=== PATIENT | male | born 1955 | race Caucasian/White ===

== ENCOUNTER 2018-03-23 00:23 | Outpatient (CLI) | payer BC, SELFPAY ==
--- NOTE | 2018-03-23 14:11 | DI.RAD_ITS ---
SYMPTOMS/DIAGNOSIS: LEFT KNEE JOINT PAIN > 3 MONTHS, M25.562 LEFT KNEE: Three views. No bone or joint abnormality is identified. The soft tissues are unremarkable. IMPRESSION: Negative examination.
== END 2018-03-23 00:43 ==
PROVIDERS: PCP Family Medicine; Visit Provider Family Medicine
DX: M25.562 Pain in left knee (principal)
CPT/HCPCS: 73562

== ENCOUNTER 2018-11-09 07:53 | Outpatient (REF) | payer BC, SELFPAY ==
[2018-11-09 13:29] LABS: HCT 42.8 % (40.0-50.0); HGB 15.4 g/dL (13.5-17.5); Mean Corpuscular Hemoglobin 31.9 pg (27.0-33.0); Mean Corpuscular Volume 88.6 fL (80-95); Mean Platelet Volume 10.1 fL (8.0-11.0); Platelet Count 150 x1000/uL (130-400); RBC 4.83 m/cumm (4.50-6.00); RBC Distribution Width 13.5 % (11.8-14.1); White Blood Cell Count 6.39 k/cumm (4.4-10.8)
[2018-11-09 13:34] LABS: Anion Gap 8.5 mmol/L (3-11); BUN 28 mg/dL (7-18); CO2 29.5 mmol/L (21.0-32.0); CREATININE 1.15 mg/dL (0.70-1.30); Calcium 8.9 mg/dL (8.5-10.1); Chloride 103 mmol/L (98-107); Glucose 109 mg/dL (70-100); Sodium 141 mmol/L (136-145)
== END 2018-11-09 08:13 ==
LOC: NCHCN 07:53
PROVIDERS: PCP Family Medicine; Visit Provider Family Medicine
DX: R07.89 Other chest pain (principal); R06.09 Other forms of dyspnea
CPT/HCPCS: 80048; 85027

== ENCOUNTER 2018-11-14 00:04 | Outpatient (CLI) | payer BC, SELFPAY ==
--- NOTE | 2018-11-14 09:45 | MERGEMPI_ITS ---
*[facility]* *[facility]* [address] [place] [address] Myocardial Perfusion Imaging - SPECT Regadenoson Date of study: 11/14/2018 *PATIENT PRESENTATION* Height: 170.2cm (67in) Blood Pressure: Weight: 77.3kg (170lb) BSA: 1.93m^2 Referring physician: Dhaval Kimball MD Ordering physician: Radha Ceballos Impressions: - Abnormal study after pharmacologic stress. - Abnormal contraction consistent with cardiomyopathy. - Rec cardiology follow up. Summary: 1. Myocardial perfusion imaging: There is a small - moderate sized, moderately intense, partially reversible defect involving the apical wall(s). This suggests small - moderate ischemia in the distribution of the left anterior descending coronary artery. Overall ischemia: small to moderate. 2. The calculated left ventricular ejection fraction after stress: 43%. Diffuse left ventricular regional motion abnormalities. Indication: R07.89. History: Patient's presenting symptoms: asymptomatic. REASON FOR VISIT: PATIENT HAS BEEN EXPERIENCING 6/10 STERNAL ACHEY, PRESSURE CHEST PAIN AND DYSPNEA ON EXERTION WHEN WALKING UPHILL OR WALKING FAST OVER THE PAST FEW WEEKS.. CHEST PRESSURE AND DYSPNEA LAST A MINUTE AND RESOLVE WITH REST. WHEN HE BEGINS ACTIVITY AGAIN THE SYMPTOMS RETURN. PAST MEDICAL HISTORY: CORONARY ARTERY DISEASE, DM II, ERECTILE DYSFUNCTION, MYOCARDIAL INFARCTION, HYPERTENSION, HYPERLIPIDEMIA. FAMILY HISTORY: FATHER (DIABETES). SMOKING STATUS: REMOTE SMOKING HISTORY. EXERCISE ROUTINE: WALKS 4X/WEEK. Risk factors: Hypertension. Diabetes mellitus. Dyslipidemia. Cholesterol: 190mg/dl. HDL: 30mg/dl. LDL: 43mg/dl. Triglycerides: 481mg/dl. ALLERGIES: NO KNOWN ALLERGIES. MEDICATIONS: LISINOPRIL 2.5MG, DAILY. METOPROLOL SUCCINATE ER 50MG, DAILY. ATORVASTATIN CALCIUM 80MG, HS. ASPIRIN 81MG, DAILY. NITROGLYCERIN 0.4MG, SL PRN. SILDENAFIL CITRATE 100MG, PRN. Imaging Technique: Protocol: Regadenoson. Acquisition: Gated SPECT; 1 day - rest/stress. The patient was imaged in the supine position. Attenuation correction used. Isotope administration: - Rest. Tc[99m]-sestamibi. Dose: 9mCi. Injection time: 09:45 AM. Injection to stress time: 00:45. - Stress. Tc[99m]-sestamibi. Dose: 30mCi. Injection time: 12:15 PM. 1-2 min before end of exercise Baseline ECG: SINUS BRADYCARDIA. ST ELEVATION OF LEAD V2. HEART RATE 47 BPM. Stress protocol: +--------+--+ + + + !Stage !HR!BP (mmHg) !Symptoms !Comments ! +--------+--+ + + + !Baseline!47!110/72 ! ! ! ! ! !(85) ! ! ! +--------+--+ + + + !1 min !85!130/78 ! !Inject Regadenoson.! ! ! !(95) ! ! ! +--------+--+ + + + !3 min !70!112/70 !3 out of 10 chest ! ! ! ! !(84) !discomfort ! ! +--------+--+ + + + !6 min !66!120/64 !3 out of 10 chest ! ! ! ! !(83) !discomfort ! ! +--------+--+ + + + !8 min !--! !4 out of 10 chest ! ! ! ! ! !discomfort ! ! +--------+--+ + + + !9 min !68!116/72 ! ! ! ! ! !(87) ! ! ! +--------+--+ + + + !1 min !--! ! !Inject Regadenoson.! +--------+--+ + + + * Stress results: The rate-pressure product for the peak heart rate and blood pressure was 88633wg Hg/min. Stress ECG: MPI STRESS TEST ENDED IN 13MIN 36SEC WHEN EFFECTS OF REGADENOSON INJECTION HAD SUBSIDED. APPROPRIATE HEART RATE AND BLOOD PRESSURE RESPONSE TO EXERCISE. PATIENT REPORTED ONSET OF 3/10 STERNAL CHEST PRESSURE AT MINUTE THREE POST REGADENOSON INJECTION, INCREASING TO 4/10 CHEST PRESSURE AT MINUTE EIGHT. AMINOPHYLLINE WAS GIVEN 10MIN 40SEC POST REGADEONSON INJECTION TO RELIEVE SYMPTOMS. NO ECTOPY NOTED. INVERTED T WAVES IN LEADS V3, V4, AND V5 NOTED WITH REGADENOSON INJECTION, RETURING TO BASELINE BY MINUTE THREE. Myocardial perfusion: Imaging information: gated. There is a small - moderate sized, moderately intense, partially reversible defect involving the apical wall(s). This suggests small - moderate ischemia in the distribution of the left anterior descending coronary artery. Overall ischemia: small to moderate. Ventricular Function (Wall Motion): The calculated left ventricular ejection fraction after stress: 43%. Diffuse left ventricular regional motion abnormalities. Study data: Dhaval Kimball MD supervised and was readily available during the procedure. This study was interpreted by [facility]. Study status: Routine. Consent: The risks, benefits, and alternatives to the procedure were explained to the patient and informed consent was obtained. Procedure: Initial setup. A baseline ECG was recorded. Surface ECG leads and manual cuff blood pressure measurements were monitored. Heart sounds: Normal. Lung sounds: Normal. Regadenoson stress test. Stress testing was performed, with regadenoson by intravenous bolus, for a total dose of 0.4mgover 10.00sec, followed by a 5ml saline flush. The infusion was terminated due to per protocol. The patient was unable to exercise due to METOPROLOL USE TODAY. Study completion: All catheters inserted during the procedure were removed. The patient tolerated the procedure well and was discharged from the lab. Discharge: The patient left the laboratory in stable condition. Birthdate: Patient birthdate: 1955. Sex: Gender: male. Study date: Study date: 11/14/2018. Study time: 00:01 AM. Electronically signed by Dhaval Kimball MD 11/14/2018 16:55
[2018-11-14] MEDS: Regadenoson 0.4 MG/5 ML SYR IVP (12:11)
== END 2018-11-14 00:24 ==
PROVIDERS: PCP Family Medicine; Visit Provider Family Medicine
DX: R07.89 Other chest pain (principal); R06.09 Other forms of dyspnea; I42.9 Cardiomyopathy, unspecified; R94.30 Abnormal result of cardiovascular function study, unspecified; I25.10 Atherosclerotic heart disease of native coronary artery without angina pectoris; I25.2 Old myocardial infarction; E11.9 Type 2 diabetes mellitus without complications; I10 Essential (primary) hypertension; E78.5 Hyperlipidemia, unspecified
CPT/HCPCS: 78452; 93017; J0280; J2785

== ENCOUNTER 2018-12-07 09:19 | Outpatient (CLI) | payer BC, SELFPAY | END 2018-12-07 09:39 | PROVIDERS: PCP Family Medicine; Visit Provider Internal Medicine Cardiovascular Disease | DX: I25.10 Atherosclerotic heart disease of native coronary artery without angina pectoris (principal); Z95.818 Presence of other cardiac implants and grafts; I10 Essential (primary) hypertension; E78.5 Hyperlipidemia, unspecified; E11.9 Type 2 diabetes mellitus without complications | CPT/HCPCS: 93005; 93010 ==

== ENCOUNTER 2018-12-28 11:25 | Outpatient (RCR) | payer BC, SELFPAY | END 2018-12-30 23:59 | disposition home or self-care (01) | LOC: CR 11:25 | PROVIDERS: PCP Family Medicine; Visit Provider Family Medicine | DX: Z51.89 Encounter for other specified aftercare (principal); Z95.5 Presence of coronary angioplasty implant and graft | CPT/HCPCS: S9472 ==

== ENCOUNTER 2019-01-07 00:59 | Outpatient (CLI) | payer BC, SELFPAY ==
--- NOTE | 2019-01-07 13:55 | MERGE_ITS ---
*[facility]* *[facility]* [address] [place] [address] Date of study: 01/07/2019 Transthoracic Echocardiography M-mode, complete 2D, complete spectral Doppler, and color Doppler *STUDY CONCLUSIONS* Summary: 1. Left ventricle: The cavity size was normal. Systolic function was normal. The estimated ejection fraction was 60-65%. Diastolic parameters were normal for age. There was no evidence of elevated ventricular filling pressure by Doppler parameters. 2. Aortic valve: There was mild to moderate regurgitation. 3. Mitral valve: There was mild regurgitation. 4. Right ventricle: The cavity size was normal. Wall thickness was normal. Systolic function was normal. 5. Atrial septum: No defect or patent foramen ovale was identified. 6. Pulmonary arteries: Pulmonary systolic pressure was in the range of 20mm Hg to 30mm Hg. 7. Inferior vena cava: The vessel was patent and normal in size. The respirophasic diameter changes were in the normal range (greater than or equal to 50%), consistent with normal central venous pressure. *PATIENT PRESENTATION* Height: 170.2cm (67in ) S/D Pressure: 108 / 64 Weight: 76.7kg (168.6lb ) BSA: 1.92m^2 Test start time: 02:05 PM. Test stop time: 01:05 PM. PERFORMING Unknown ORDERING Diana Meza REFERRING Diana Meza PERFORMING [facility] SHIATSU THERAPIST RT Madison Pearson)(JOSE RAMON), [facility] CONSULTING Tayo Lpoez *PROCEDURE DATA* Procedure information: The patient was identified by two identifiers. This study was interpreted by [facility]. Pertinent images and digital data are archived for permanent storage and are available for subsequent review. No prior study was available for comparison. Study status: Routine. Transthoracic echocardiography. M-mode, complete 2D, complete spectral Doppler, and color Doppler. A Transthoracic Echocardiogram was performed. Scanning was performed from the parasternal, apical, subcostal, and suprasternal notch acoustic windows. Images were obtained using an cardiac ultrasound machine. Image quality was good. Study completion: The patient tolerated the procedure well. History: PMH: CAD i25.10 *CARDIAC ANATOMY* Left ventricle: The cavity size was normal. Systolic function was normal. The estimated ejection fraction was 60-65%. The tissue Doppler parameters were abnormal. Diastolic parameters were normal for age. There was no evidence of elevated ventricular filling pressure by Doppler parameters. Aortic valve: Trileaflet. Doppler: Transvalvular velocity was minimally increased. There was mild to moderate regurgitation. VTI ratio of LVOT to aortic valve: 0.57. Valve area (VTI): 1.8cm^2. Indexed valve area (VTI): 1cm^2/m^2. Peak velocity ratio of LVOT to aortic valve: 0.54. Valve area (Vmax): 1.8cm^2. Indexed valve area (Vmax): 0.9cm^2/m^2. Mean velocity ratio of LVOT to aortic valve: 0.55. Valve area (Vmean): 1.8cm^2. Indexed valve area (Vmean): 0.9cm^2/m^2. Mean gradient (S): 9.6mm Hg. Peak gradient (S): 17.4mm Hg. Aorta: Aortic root: The aortic root was normal in size. Ascending aorta: The ascending aorta was mildly dilated. Mitral valve: Doppler: There was no evidence for stenosis. There was mild regurgitation. Valve area by pressure half-time: 4.8cm^2. Indexed valve area by pressure half-time: 2.5cm^2/m^2. Peak gradient (D): 3.4mm Hg. Left atrium: The atrium was normal in size. Atrial septum: No defect or patent foramen ovale was identified. Right ventricle: The cavity size was normal. Wall thickness was normal. Systolic function was normal. Pulmonic valve: Doppler: There was no evidence for stenosis. There was mild regurgitation. Peak gradient (S): 3.4mm Hg. Tricuspid valve: Doppler: There was mild regurgitation. Pulmonary artery: Poorly visualized. Pulmonary systolic pressure was in the range of 20mm Hg to 30mm Hg. Right atrium: The atrium was normal in size. Pericardium: There was no pericardial effusion. Systemic veins: Inferior vena cava: Well visualized. The vessel was patent and normal in size. The respirophasic diameter changes were in the normal range (greater than or equal to 50%), consistent with normal central venous pressure. Baseline ECG: Normal sinus rhythm. Measurements Left ventricle Value Reference LV ID, ED, PLAX 4.6 cm 3.5 - 6.0 LV ID, ES, PLAX 3.3 cm 2.1 - 4.0 LV PW thickness, ED, PLAX 0.8 cm LV end-diastolic volume, 1-p A2C 108 ml LV ejection fraction, 1-p A2C 61 % LV end-diastolic volume, 1-p A4C 104 ml LV ejection fraction, 1-p A4C 67 % LV e', lateral 0.111 m/sec LV E/e', lateral 8 LV e', medial 0.067 m/sec LV E/e', medial 14 LV e', average 0.089 m/sec LV E/e', average 10 Ventricular septum Value Reference IVS thickness, ED, PLAX 0.9 cm LVOT Value Reference LVOT ID, A-P 2.0 cm LVOT area 3.2 cm^2 LVOT peak velocity, S 1.12 m/sec LVOT mean velocity, S 0.81 m/sec LVOT VTI, S 28.0 cm LVOT peak gradient, S 5.1 mm Hg LVOT mean gradient, S 2.9 mm Hg Stroke volume (SV), LVOT DP 91 ml Stroke index (SV/bsa), LVOT DP 47 ml/m^2 Aortic valve Value Reference Aortic valve peak velocity, S 2.1 m/sec Aortic valve mean velocity, S 1.5 m/sec Aortic valve VTI, S 49.0 cm Aortic mean gradient, S 9.6 mm Hg Aortic peak gradient, S 17.4 mm Hg VTI ratio, LVOT/AV 0.57 Aortic valve area, VTI 1.8 cm^2 Velocity ratio, peak, LVOT/AV 0.54 Aortic valve area, peak velocity 1.8 cm^2 Velocity ratio, mean, LVOT/AV 0.55 Aortic valve area, mean velocity 1.8 cm^2 Aortic valve area/bsa, mean velocity 0.9 cm^2/m^2 Aorta Value Reference Aortic root ID, ED 3.6 cm Ascending aorta ID, A-P, S 3.5 cm RVOT Value Reference RVOT VTI, S 12.9 cm Left atrium Value Reference LA ID, A-P, ES 3.5 cm LA ID/bsa, A-P 1.8 cm/m^2 <=2.2 LA volume/bsa, ES, 1-p A4C 38 ml/m^2 LA volume, ES, 2-p 61 ml LA volume/bsa, ES, 2-p 32 ml/m^2 LA/aortic root ratio 0.97 Mitral valve Value Reference Mitral E-wave peak velocity 0.92 m/sec Mitral A-wave peak velocity 0.84 m/sec Mitral deceleration time 159 ms 150 - 230 Mitral pressure half-time 46 ms Mitral peak gradient, D 3.4 mm Hg Mitral E/A ratio, peak 1.09 Mitral valve area, PHT, DP 4.8 cm^2 Pulmonary veins Value Reference Pulmonary vein peak velocity, S 0.57 m/sec Pulmonary vein peak velocity, D 0.45 m/sec Pulmonary vein velocity ratio, peak, 1.27 S/D Pulmonary vein A-wave reversal peak 0.36 m/sec velocity Tricuspid valve Value Reference Tricuspid regurg peak velocity 2.4 m/sec Tricuspid peak RV-RA gradient 23.3 mm Hg Right atrium Value Reference RA area, ES, A4C 14.1 cm^2 8.3 - 19.5 Pulmonic valve Value Reference Pulmonic peak gradient, S 3.4 mm Hg Legend: (L) and (H) edson values outside specified reference range. I have personally reviewed the images and have reviewed and edited the reported findings. Electronically signed by Dhaval Kimball MD 01/07/2019 17:46
== END 2019-01-07 01:19 ==
PROVIDERS: PCP Family Medicine; Visit Provider Internal Medicine Cardiovascular Disease
DX: I25.10 Atherosclerotic heart disease of native coronary artery without angina pectoris (principal); I25.2 Old myocardial infarction; I42.9 Cardiomyopathy, unspecified; I10 Essential (primary) hypertension
CPT/HCPCS: 93306

== ENCOUNTER 2019-01-30 13:41 | Outpatient (RCR) | payer BC, SELFPAY | END 2019-01-30 23:59 | disposition home or self-care (01) | LOC: CR 13:41 | PROVIDERS: PCP Family Medicine; Visit Provider Family Medicine | DX: Z95.5 Presence of coronary angioplasty implant and graft (principal); Z51.89 Encounter for other specified aftercare | CPT/HCPCS: S9472 ==

== ENCOUNTER 2019-03-01 10:00 | Outpatient (RCR) | payer BC, SELFPAY | END 2019-03-02 23:59 | disposition home or self-care (01) | LOC: CR 10:00 | PROVIDERS: PCP Family Medicine; Visit Provider Family Medicine | DX: Z95.5 Presence of coronary angioplasty implant and graft (principal); Z51.89 Encounter for other specified aftercare | CPT/HCPCS: S9472 ==

== ENCOUNTER 2019-03-13 09:00 | Outpatient (RCR) | payer BC, SELFPAY | END 2019-04-01 23:59 | disposition home or self-care (01) | LOC: CR 09:00 | PROVIDERS: PCP Family Medicine; Visit Provider Family Medicine | DX: Z95.5 Presence of coronary angioplasty implant and graft (principal); Z51.89 Encounter for other specified aftercare | CPT/HCPCS: S9472 ==

== ENCOUNTER 2020-02-27 16:42 | Outpatient (REF) | payer BC, SELFPAY ==
[2020-02-27 18:49] LABS: Anion Gap 3.9 mmol/L (3-11); BUN 24 mg/dL (7-18); CO2 30.1 mmol/L (21.0-32.0); CREATININE 1.18 mg/dL (0.70-1.30); Calcium 8.6 mg/dL (8.5-10.1); Calculated LDL 57 mg/dL (<100); Chloride 104 mmol/L (98-107); Cholesterol 115 mg/dL (<200); Glucose 170 mg/dL (74-106); HDL Cholesterol 46 mg/dL (40-60); Potassium 4.1 mmol/L (3.5-5.1); Sodium 138 mmol/L (136-145); Triglyceride 63 mg/dL (<150)
== END 2020-02-27 17:02 ==
LOC: NCHCN 16:42
PROVIDERS: PCP Family Medicine; Visit Provider Family Medicine
DX: Z00.00 Encounter for general adult medical examination without abnormal findings (principal); I25.10 Atherosclerotic heart disease of native coronary artery without angina pectoris; Z86.39 Personal history of other endocrine, nutritional and metabolic disease
CPT/HCPCS: 80048; 80061

== ENCOUNTER 2020-12-13 08:23 | Emergency (ER) | payer BC, SELFPAY ==
[2020-12-13] VITALS (48 sets, daily range): BP systolic 104–139; BP diastolic 41–77; PULSE 45–65; RESP 8–23; TEMP 36.3; O2SAT 97–100
--- NOTE | 2020-12-13 08:15 | RT.EKG_ITS ---
APPROVED REPORT Exam: Resting ECG Reason for Exam: chest pain Patient Location: E HR:59 bpm ECG Measurements Heart Rate 59 AXIS VT 164 P 2 QRSd 106 QRS 20 QT 465 T 38 QTc 461 Conclusion Sinus bradycardia...rate 60, st segments flat, with slight st elevation V3-6
--- NOTE | 2020-12-13 08:45 | DI.CT_ITS ---
Exam(s) CT HEAD WO EXAM: CT HEAD WO CLINICAL HISTORY: dizziness, chest pressure. TECHNIQUE: Imaging Protocol: Axial computed tomography images with coronal and sagittal reformatted images were created and reviewed COMPARISON: No exams were available for comparison FINDINGS: Ventricles and Extra axial spaces: Normal in size and morphology for the patient's age. Hemorrhage: None. Cerebral parenchyma: No acute territorial infarct. Midline shift: None. Brainstem/Cerebellum: Normal. Calvarium: Normal. Visualized Paranasal sinuses/Mastoids: There is mucosal thickening seen in the maxillary sinuses bila terally. There is thickening of the waggoner of the maxillary sinus suggesting chronic sinus disease. There is also opacification of several ethmoid air cells bilaterally. There does appear to be fluid in the maxillary sinus which may represent a superimposed acute sinusitis. The remaining visualized paranasal sinuses and mastoid air cells are clear. Soft Tissues: Unremarkable. IMPRESSION: 1. No acute intracranial process. 2. Sinus disease. RADIATION DOSE DELIVERED: 724.38mGy.cm Total DLP DATA REPOSITORY: All CT scans at this facility are submitted to the National Radiology Data Registry (NRDR) Dose Index Registry (DIR) with the [employer] (ACR). RADIATION OPTIMIZATION: All CT scans at this facility use at least one of these dose optimization te chniques: automated exposure control; mA and/or kV adjustment per patient size (includes targeted exa ms where dose is matched to clinical indication); or iterative reconstruction.
--- NOTE | 2020-12-13 08:45 | DI.RAD_ITS ---
Exam(s) XR CHEST 2V PA LATERAL EXAM: XR CHEST 2V PA LATERAL CLINICAL HISTORY: Chest pain TECHNIQUE: 2D digital imaging was performed. COMPARISON: No exams were available for comparison FINDINGS: MEDIASTINUM: Normal. HEART: Normal. PULMONARY VASCULATURE: Normal. LUNGS: Clear. PLEURAL SPACE: No pleural effusion or pneumothorax. BONE:Within normal limits for the patient's age. OTHER FINDINGS:Normal. IMPRESSION: No acute pulmonary findings. DATA REPOSITORY: RADIATION DOSE DELIVERED:
--- NOTE | 2020-12-13 08:50 | ED.GENADUL_ITS ---
Discharge Plan Disposition Patient Disposition: HOME Condition: Improving Discharge Details Clinical Impression: Acute maxillary sinusitis Primary Care Provider: Tayo Lopez ED Provider: Santiago Farmer Home Meds and New Rx's Prescriptions: New cefpodoxime 200 mg tablet 200 mg PO BID Qty: 14 RF: 0 Continued lisinopril 2.5 mg tablet 2.5 mg PO DAILY RF: 0 metoprolol succinate 50 mg tablet extended release 24 hr 50 mg PO DAILY RF: 0 rosuvastatin 40 mg tablet 40 mg PO DAILY RF: 0 aspirin 81 mg tablet,delayed release (DR/EC) 81 mg PO DAILY RF: 0 sildenafil [Viagra] 100 mg tablet 100 mg PO DAILY PRNRF: 0 nitroglycerin 0.4 mg Tablet, Sublingual 0.4 mg SUBLINGUAL Q5M PRNRF: 0 Discharge Instructions Instructions: Sinusitis (ED) Additional Instructions: Home to rest today. Small, frequent sips of fluids to maintain good hydration. May use Claritin during the day or Benadryl at night to assist with decongestion of the sinuses. Please take Cefpodoxime as prescribed. Return to the ER for any acute concerns as we discussed. Medical Decision Making 65-year-old male presents from home. States he had the onset of chest pressure, a feeling of flushing in his head, and diaphoresis at approximate 11 PM last night. He was sitting in bed at the time. He took Viagra at midnight, states this did not help, then was able to sleep. He denies any exertion or sexual relations last night. This morning he awoke and had chest pressure. His child felt improved, but given history of coronary artery disease he now seeks evaluation for ongoing mild chest pressure. Patient arrives ER afebrile, blood pressure 139/63. Heart rate 68-65 approximately. He is well-appearing on exam. Initial EKG shows a slight slurred upslope of the ST segments in V3 through 6, otherwise nonspecific changes. Differential diagnosis includes ACS, GERD, electrolyte abnormality or dehydration. Patient placed on a youth nutritional monitor, laboratories obtained, referred for chest x-ray, and given his slight vertiginous symptoms a CT scan of the head obtained as well. Diagnostic studies. Laboratories note an unremarkable CBC, BUN 24, creatinine 1.1, reassuring electrolytes. Troponin negative, magnesium 1.7, D-dimer elevated at 672. CT scan of the head reveals maxillary sinusitis. Chest x-ray unremarkable. Given the elevated D-dimer CT scan of the chest obtained: No evidence of PE. Patient observed on a youth nutritional monitor and repeat troponin obtained and negative. Unremarkable repeat EKG. Discussed with patient consideration of admission which he will declined at this time. I spoke to he and his at the bedside together. We will treat his maxillary sinusitis with a course of oral antibiotic. Stable and will return to the ER for any acute concerns.. HPI General Mode of arrival: ambulatory . Date/Time Provider Initiated Documentation: 12/13/20 08:26 . Limitations to Documentation: no limitations . Information obtained by: patient and family . History of Present Illness 65 year old M presents to the emergency department with the chief complaint of Chest pressure, began 11 PM last night, described as mild and moderate, Quality is described as dull, and is localized to the chest. Patient started experiencing this hour(s) and it has been intermittent. No relieving factors improve symptom(s), No exacerbating factors reported . Patient notes other (Head pressure, diaphoresis). Patient did receive the following danette tments prior to arrival, other (Viagra midnight last night) Related Data Home Medications Medication Instructions Recorded Confirmed aspirin 81 mg tablet,delayed 81 mg PO DAILY 12/07/18 12/13/20 release lisinopril 2.5 mg tablet 2.5 mg PO DAILY 12/07/18 12/13/20 metoprolol succinate 50 mg 50 mg PO DAILY 12/07/18 12/13/20 tablet,extended release 24 hr rosuvastatin 40 mg tablet 40 mg PO DAILY 12/07/18 12/13/20 sildenafil 100 mg tablet 100 mg PO DAILY PRN 12/07/18 12/13/20 cefpodoxime 200 mg PO BID #14 tab 12/13/20 nitroglycerin 0.4 mg SUBLINGUAL Q5M PRN 12/13/20 12/13/20 Previous Rx's Medication Instructions Recorded cefpodoxime 200 mg PO BID #14 tab 12/13/20 Allergies Allergy/AdvReac Type Severity Reaction Status Date / Time No Known Allergies Allergy Unverified 12/02/19 10:02 General Stated Complaint: Chest Pain MARCELA: 2 Review of Systems Narrative: No recent illness. Denies lightheadedness. Slight sensation of motion sickness that is not worsened with movement of the head. Slight chest pressure. Diaphoretic last night. 8 systems reviewed and otherwise negative. [facility] Medical History AMI (acute myocardial infarction) Surgical History (Updated 12/13/20 @ 08:35 by Genevieve Gilbert) H/O cardiac catheterization H/O heart artery stent H/O hernia repair Social History Smoking/Tobacco Use Status: Never Smoking risk assessment performed?: Yes Alcohol Intake: current Alcohol Intake frequency: holidays/special occasions only Drug use: Occasionally Substance use type: marijuana Do you feel safe in your relationship?: Yes Exam Narrative Exam Narrative: GEN: awake, alert, oriented 3. Pleasant, well groomed, interactive. HEAD: Normocephalic, atraumatic ENT: Mucous membranes moist, oropharynx unremarkable, External ear exam unremarkable EYES: PERRL, EOMI NECK: Full ROM, no GENOVEVA, no menigismus CHEST/RESP: Nontender, clear to auscultation bilateral, no wheeze/rhonchi/rales CARDIOVASCULAR: Distant, bradycardic at approximately 60-65, RR, no murmur, rub jonathan. 2+ Rad pulse bilateral ABDOMEN: Soft, nontender, no mass. +Bowel sounds EXT: Full ROM, no edema, no rash Neuro: Grossly normal neurologic exam, conversant, interactive. Cranial nerves II through XII intact Psych: Speech fluent, thoughts congruent, affect normal Course Vital Signs Vital signs: Vital Signs Temperature 36.3 C L 12/13/20 08:26 Pulse 58 L 12/13/20 08:26 Respiratory Rate 23 12/13/20 08:26 Blood Pressure 139/63 12/13/20 08:26 Pulse Oximetry 99 12/13/20 08:26 Temperature 36.3 C L 12/13/20 08:26 Temperature Source Skin 12/13/20 08:26 Pulse 58 L 12/13/20 08:26 Respiratory Rate 23 12/13/20 08:37 Respiratory Effort Non-Labored 12/13/20 08:37 Respiratory Depth Normal 12/13/20 08:37 Respiratory Pattern Normal 12/13/20 08:37 Blood Pressure 139/63 12/13/20 08:26 Blood Pressure Position Sitting 12/13/20 08:26 Pulse Oximetry 99 12/13/20 08:26 Oxygen Delivery Method Room Air 12/13/20 08:26 Oxygen Flow Rate 0 12/13/20 08:26 Pain Level 4 12/13/20 08:37
[2020-12-13] MEDS: Aspirin 325 MG TAB PO (08:57)
[2020-12-13] MEDS: Normal Saline 1,000 ML 125 ML IV (08:57)
[2020-12-13 09:00] LABS: Abs Immature Grans 0.01 10^3/uL (0.0-0.06); Absolute Basophil Count 0.04 10^3/uL (0.0-0.2); Absolute Eosinophil Count 0.27 10^3/uL (0.0-0.7); Absolute Lymphocyte Count 2.73 10^3/uL (1.2-3.4); Absolute Monocyte Count 0.52 10^3/uL (0.1-0.8); Absolute Neutrophil Count 3.26 10^3/uL (1.2-6.7); Basophils % 0.6; HCT 38.6 % (40.0-50.0); HGB 13.6 g/dL (13.5-17.5); Immature Grans % 0.1; MCH 31.1 pg (27.0-33.0); MCHC 35.2 % (32.0-36.0); MCV 88.1 fL (80-95); MPV 9.3 fL (8.0-11.0); Monocytes % 7.6; Neutrophils % 47.7; Nucleated RBC 0 %; Platelet Count 127 10^3/uL (130-400); RBC 4.38 10^6/uL (4.36-5.78); RDW 13.2 % (11.8-14.1); RDW-SD 42.5 fL; WBC 6.83 10^3/uL (4.4-10.8)
[2020-12-13 09:15] LABS: PTT Activated 22.7 sec (21.0-27.5); Prothrombin Time 10.5 sec (9.3-11.0)
[2020-12-13 09:19] LABS: ALT 37 U/L (16-63); AST 28 U/L (15-37); Alkaline Phosphatase 88 U/L (46-116); Anion Gap 7.9 mmol/L (3-11); BUN 24 mg/dL (7-18); Bilirubin, Total 0.7 mg/dL (0.2-1.0); CO2 29.1 mmol/L (21.0-32.0); CREATININE 1.1 mg/dL (0.70-1.30); Chloride 103 mmol/L (98-107); Glucose 174 mg/dL (74-106); Magnesium 1.7 mg/dL (1.8-2.4); NT-proBNP 56 pg/mL (<300); Potassium 4.4 mmol/L (3.5-5.1); Sodium 140 mmol/L (136-145); Total Protein 7.2 g/dL (6.4-8.2); Troponin I < 0.05 ng/mL (<0.06)
[2020-12-13] MEDS: Ondansetron 4 MG/2 ML VIAL IVP (09:25)
[2020-12-13] MEDS: MAGNESIUM SULFATE 1 GM/100 ML BAG IVPB (09:28)
--- NOTE | 2020-12-13 09:30 | DI.CT_ITS ---
Exam(s) CT CHEST PE CTA EXAM: CT CHEST PE CTA CLINICAL HISTORY: chest pressure, elev DDimer. Hx CAD. TECHNIQUE: Imaging Protocol: Axial CT angiography was performed with multi-slice acquisition and mu lti-planar and/or 3D reconstructions. CONTRAST MATERIAL: Intravenous: Omnipaque 350 Contrast volume:100 mL COMPARISON: No exams were available for comparison FINDINGS: Tracheobronchial tree: Patent where visualized. Pulmonary parenchyma: No consolidation or dominant measurable mass. No architectural distortion. Pulmonary Arteries: No evidence of filling defect to suggest pulmonary emboli. Mediastinum and Brooke: No dominant adenopathy or fluid collection. There is a small hiatal hernia. Visualized thyroid gland: Unremarkable. Pleura: No effusion or pneumothorax. Heart: The heart is not dilated. Moderate coronary artery calcification. No pericardial effusion. Aorta: Thoracic aorta non-dilated. Atherosclerosis. No evidence of dissection. Upper abdomen: Unremarkable. Soft tissues: Unremarkable. Bones: Within normal limits. IMPRESSION: No evidence of pulmonary embolism, thoracic aortic dissection or aneurysm. RADIATION DOSE DELIVERED: 368.44mGy.cm Total DLP DATA REPOSITORY: All CT scans at this facility are submitted to the National Radiology Data Registry (NRDR) Dose Index Registry (DIR) with the [employer] (ACR). RADIATION OPTIMIZATION: All CT scans at this facility use at least one of these dose optimization te chniques: automated exposure control; mA and/or kV adjustment per patient size (includes targeted exa ms where dose is matched to clinical indication); or iterative reconstruction.
[2020-12-13 09:32] LABS: D-Dimer 672 ng/mlFEU (<500)
--- NOTE | 2020-12-13 09:39 | DI.VRAD_ITS ---
PROCEDURE INFORMATION: Exam: CT Head Without Contrast Exam date and time: 12/13/2020 8:48 AM Age: 65 years old Clinical indication: Other: Dizziness, chest pressure TECHNIQUE: Imaging protocol: Computed tomography of the head without contrast. COMPARISON: No relevant prior studies available. FINDINGS: Brain: There is no acute intracranial hemorrhage. No extra-axial fluid collection. No evidence of acute infarct. Adkins white differentiation is intact. There is no evidence of mass. There is no mass effect or midline shift. Cerebral ventricles: No ventriculomegaly. Paranasal sinuses: There is mucosal thickening in paranasal sinuses which is greatest in maxillary sinuses where there fluid which could indicate acute sinusitis. Mastoid air cells: Mastoid air cells and middle ear cavities are well developed and well aerated. Vasculature: There are carotid greater than vertebral arteries calcifications. Bones/joints: Nasal septum is deviated to the right anteriorly and left posteriorly. Soft tissues: Unremarkable as visualized. IMPRESSION: 1. No evidence of acute intracranial abnormality. No acute hemorrhage. No evidence of acute infarct or mass. 2. Sinusitis as described. Dictated and Authenticated by: Suzan Sotomayor MD. Ordering:MARY Henderson MD
--- NOTE | 2020-12-13 09:45 | DI.VRAD_ITS ---
PROCEDURE INFORMATION: Exam: XR Chest Exam date and time: 12/13/2020 8:48 AM Age: 65 years old Clinical indication: Pain; Chest pressure TECHNIQUE: Imaging protocol: XR of the chest. Views: 2 views. COMPARISON: CR CHEST 2 VIEWS PA,LAT 06/09/2016 12:08 PM FINDINGS: Lungs: No consolidation. Pleural spaces: Unremarkable. No pleural effusion. No pneumothorax. Heart/Mediastinum: No significant cardiomegaly. Bones/joints: There is spondylosis. IMPRESSION: No acute cardiopulmonary finding. Dictated and Authenticated by: Suzan Sotomayor MD. Ordering:MARY Henderson MD
[2020-12-13] MEDS: Omnipaque 350 MG/ML 100 ML BTL IV (09:57)
[2020-12-13] MEDS: Normal Saline - Diluent 50 ML VIAL IV (09:58)
[2020-12-13] MEDS: Normal Saline Flush 10 ML SYR IVP (09:59)
--- NOTE | 2020-12-13 10:28 | DI.VRAD_ITS ---
PROCEDURE INFORMATION: Exam: CTA Chest With Contrast Exam date and time: 12/13/2020 9:37 AM Age: 65 years old Clinical indication: Other: Diffuse abdominal pain, maximal rlq TECHNIQUE: Imaging protocol: Computed tomographic angiography of the chest with contrast. 3D rendering (Not supervised by radiologist): MIP and/or 3D reconstructed images were created by the technologist. Contrast material: OMNIPAQUE 350; Contrast volume: 100 ml; Contrast route: INTRAVENOUS (IV); COMPARISON: CR XR CHEST 2V PA LATERAL 12/13/2020 9:15 AM FINDINGS: Pulmonary arteries: Normal. No pulmonary emboli. Aorta: There is atherosclerotic change. No aortic aneurysm or dissection. Lungs: Unremarkable. No consolidation. No masses. Pleural spaces: Unremarkable. No pneumothorax. No pleural effusion. Heart: There are left coronary artery calcifications with coronary stent in place. Lymph nodes: Unremarkable. No enlarged lymph nodes. Bones/joints: There is spondylosis with anterior vertebral spurring. Soft tissues: Unremarkable. IMPRESSION: No evidence of pulmonary emboli. Dictated and Authenticated by: Suzan Sotomayor MD. Ordering:MARY Henderson MD
--- NOTE | 2020-12-13 11:30 | RT.EKG_ITS ---
APPROVED REPORT Exam: Resting ECG Reason for Exam: chest pressure Patient Location: E HR:51 bpm ECG Measurements Heart Rate 51 AXIS HI 166 P 51 QRSd 106 QRS -1 QT 473 T 28 QTc 435 Conclusion Sinus bradycardia...rate< 60
[2020-12-13 12:12] LABS: Troponin I < 0.05 ng/mL (<0.06)
[2020-12-13] MEDS: Cefpodoxime 200 MG TAB PO (12:54)
--- NOTE | 2020-12-31 10:59 | NUR.NOTE ---
Genevieve Gilbert RN d/c'd IV and solution on 12/13/20 at 1305.Nursing Note:
== END 2020-12-13 13:04 | disposition home or self-care (01) ==
PROVIDERS: Emergency Provider Emergency Medicine; PCP Family Medicine
DX: J01.00 Acute maxillary sinusitis, unspecified (principal); R07.89 Other chest pain; R79.1 Abnormal coagulation profile
CPT/HCPCS: 36415; 71275; 80053; 93005; 96361; 96365; 96366; 96375; 99285; 70450; 71046; 83735; 83880; 84484; 85025; 85379; 85610; 85730; 93010; 99284; J2405; J3475; J3490

== ENCOUNTER 2021-11-08 07:37 | Day surgery (SDC) | payer OTHER, SELFPAY ==
--- NOTE | 2021-11-08 06:35 | W.COLOREPORT ---
Colonoscopy Report Date of procedure: 11/08/21 Pre-op diagnosis general: Colon Cancer Screening Post-op diagnosis procedure note: other (polyp and sigmoid diverticulosis) Procedure: Colonoscopy with polypectomy Surgeon: Digna Gonzales Anesthesia Type: General:No Airway Estimated blood loss (mL): 3 Pathology: other (ascending polyp) Complications: None Disposition: same day Indications: Mr. Joy is a pleasant 66-year-old gentleman who is here to discuss a screening colonoscopy.? His last colonoscopy was in 2010 and normal.? He denies any changes in bowel habits, unintentional weight loss, melena, hematochezia, abdominal pain or family history of colon cancer.? He does have a history of an [place] in 2016 followed by a cardiac catheterization in 2019 with a stent placed in the LAD.? He has been stable since then.? He has no chest pain with activity.? He has lost about 40 pounds.? The colonoscopy was discussed in detail with him as well as the risks and benefits and he wished to proceed. Risks, benefits and complications have been reviewed. Complications include but are not limited to bleeding, pain, perforation, missed small lesion/polyp, sore throat, aspiration and adverse reaction to the medications. Questions were entertained and answered to their satisfaction and they wished to proceed. No guarantees were given or implied. Colonoscopy under sedation Prep: Miralax/Dulcolax Procedure Start Time: 09:58 Procedure End Time: 10:18 Retraction Time: 13 minutes Findings: One small polyp Diverticulosis Procedure Description: After informed consent was obtained the patient was taken to the procedure room and placed in a left decubitous position. Monitors were applied and a time out was done. The patients name, date of , procedure, allergies to medications and metal in their body was reviewed. The patient was then sedated. Once sedated and comfortable a rectal exam was done. External exam was normal. Internal exam revealed a normal sphincter tone and no palpable masses. The prostate felt smooth and slightly enlarged. The scope was then introduced and retro-flexed. No internal hemorrhoids, polyps or masses were identified on retro-flexion. The scope was then advanced to the cecum without difficulty. The ileocecal vlave and appendiceal orifice were identified. The prep was adequate. The scope was then slowly retracted over 13 minutes back into the rectum. Polyps were removed with cold forcceps in the ascending colon. There was mild sigmoid diverticulosis noted. The scope was removed and the patient was woken up and taken back to Same day surgery in stable condition. The patient tolerated the procedure well and there were no immediate complications. Follow up: The patient should follow up in 5 years unless they develop changes in bowel habits or other new gastrointestinal complaints.
--- NOTE | 2021-11-08 06:36 | W.PM.DSUDISC ---
Discharge Plan Disposition Patient Disposition: HOME Condition: Good Discharge Details Reason For Visit: Colonoscopy Attending Provider: Digna Gonzales Primary Care Provider: Tayo Lopez Home Meds and New Rx's Prescriptions: Continued metoprolol succinate 50 mg tablet extended release 24 hr 50 mg PO DAILY 0RF rosuvastatin 40 mg tablet 40 mg PO DAILY 0RF aspirin 81 mg tablet,delayed release (DR/EC) 81 mg PO DAILY 0RF sildenafil [Viagra] 100 mg tablet 100 mg PO DAILY PRN0RF triamcinolone acetonide 0.1 % cream 1 applic topical BID 0RF lisinopril 2.5 mg tablet 5 mg PO DAILY 0RF nitroglycerin 0.4 mg Tablet, Sublingual 0.4 mg SUBLINGUAL Q5M PRN0RF Discontinued bisacodyl [Dulcolax (bisacodyl)] 5 mg tablet,delayed release (DR/EC) 5 mg PO ONCE Qty: 4 0RF Rx Instructions: Take according to provider's instructions for colonoscopy prep. polyethylene glycol 3350 17 gram/dose powder 17 g PO ONCE Qty: 238 0RF Rx Instructions: To be taken as directed by prescriber's office for colonoscopy prep. Discharge Instructions Instructions: Diverticulosis (DC), Colorectal Polyps (DC) Additional Instructions: Findings: 1 small polyp diverticulosis Follow up: 5 years Please call if you develop: fevers >101.5 Nausea or Vomiting Abdominal pain that is not transient Rectal bleeding that is more then a tbsp A hard abdomen and inability to pass gas DAY SURGERY UNIT POST ENDOSCOPY INSTRUCTIONS Instructions for everyone who is given Anesthesia: For your safety, please do the following for the next 24 Hours: a. Do not drive or operate dangerous equipment b. Do not drink alcohol beverages or use any recreational drugs for the first 24 hours or while taking pain medications. The medications in your body may have a reaction that can be dangerous. c. Do not make any important decisions or sign any important papers 1. Generally there are no restrictions on your activity after a day or so has gone by, but you may feel a bit fatigued for a few days. 2. After you arrive home you may have a light meal and return to a normal diet as you can tolerate it without feeling sick to your stomach. 3. After surgery, you may feel pain or discomfort. This should be only transient, but if it persists please contact your doctor. 4. If there are any questions regarding the findings of your procedure, please feel free to contact your doctor. 6. If you are unable to contact your doctor with a problem, contact the hospital at [phone]. 7. Continue all your regular medications unless directed otherwise. I understand the above instructions and have no questions. Signature of Patient or Responsible Adult Escort Date/Time Name of Responsible Adult Escort Signature of Nurse Date/Time Activity:: Activity as Tolerated Diet:: high fiber diet Discharge Orders Discharge Orders: Discharge Order (Routine); Ordered 11/08/21 Ordered By: Digna Gonzales
[2021-11-08 07:45] VITALS: BP 145/76; PULSE 67; RESP 18; TEMP 35.9; O2SAT 99
[2021-11-08] MEDS: Lactated Ringers 1,000 ML 80 ML IV (08:06)
--- NOTE | 2021-11-08 09:11 | W.ANESPRE ---
General Info Date of Service Date Performed: 11/08/21 Height: 5 ft 7 in Weight: 76.5 kg Body Mass Index (BMI): 26.4 Surgical Procedure: Operation Date: 11/08/21 10:05 Proposed Procedure Side Surgeon lex Gonzales MD Meds Allergies and Home Medications Allergies Allergy/AdvReac Type Severity Reaction Status Date / Time No Known Allergies Allergy Verified 11/02/21 14:29 Home Medication Medication Instructions Recorded aspirin 81 mg tablet,delayed 81 mg PO DAILY 12/07/18 release metoprolol succinate 50 mg 50 mg PO DAILY 12/07/18 tablet,extended release 24 hr rosuvastatin 40 mg tablet 40 mg PO DAILY 12/07/18 sildenafil 100 mg tablet (Viagra) 100 mg PO DAILY PRN 12/07/18 nitroglycerin 0.4 mg sublingual 0.4 mg SUBLINGUAL Q5M PRN 12/13/20 tablet lisinopril 2.5 mg tablet 5 mg PO DAILY tab 04/13/21 triamcinolone acetonide 0.1 % 1 applic TOPICAL BID 04/13/21 topical cream bisacodyl 5 mg tablet,delayed 5 mg PO ONCE #4 tab 11/02/21 release (Dulcolax (bisacodyl)) polyethylene glycol 3350 17 17 g PO ONCE #238 g 11/02/21 gram/dose oral powder Current Visit Medications: Current Medications Generic Name Dose Route Start Last Admin Trade Name Freq PRN Reason Stop Dose Admin Hyoscyamine Sulfate 0.125 mg 11/08/21 06:37 Hyoscyamine 0.125 Mg Sl/Oral/Chew SL DIRECTED PRN Ringer's Solution 1,000 mls @ 80 mls/hr 11/08/21 06:00 11/08/21 08:06 IV 12/05/21 23:59 80 mls/hr INFUSION LEONOR Administration IV Miscellaneous Supplies 1 each 11/08/21 06:00 Iv Access IV 12/05/21 23:59 DIRECTED LEONOR Ondansetron HCl 4 mg 11/08/21 06:37 Ondansetron 4 Mg/2 Ml Vial IVP Q4H PRN PRN Nausea / Vomiting Sodium Chloride 0 ml 11/08/21 06:00 Normal Saline Flush 10 Ml Syr IV 12/05/21 23:59 PRN PRN Sodium Chloride 0 ml 11/08/21 06:00 Normal Saline 10 Ml Vial IJ 12/05/21 23:59 DIRECTED PRN Sterile Water 0 ml 11/08/21 06:00 Water,Injection,Sterile 10 Ml Vial IJ 12/05/21 23:59 DIRECTED PRN PFSH Active Problems Active Problems: Problem Status Onset Code Atherosclerotic cardiovascular disease I25.10 Screening for colon cancer Z12.11 CAD (coronary artery disease) I25.10 Diabetes E11.9 Medical History Medical History Acid reflux Acute maxillary sinusitis AMI (acute myocardial infarction) Eczema Erectile dysfunction Medical History Comments:: Daily Marijuana Surgical History Surgical History H/O cardiac catheterization H/O heart artery stent H/O hernia repair History of colonoscopy Tobacco Smoking/Tobacco Use Status: Never Alcohol Alcohol Intake: current Alcohol intake frequency: holidays/special occasions only Substance Use Substance use: Occasionally Substance use type: marijuana Vital Signs and Lab Results Vital Signs Most Recent Vital Signs in EMR: Most Recent Vital Signs Temp Pulse Resp BP Pulse Ox 35.9 C L 67 18 145/76 H 99 11/08/21 07:45 11/08/21 07:45 11/08/21 07:45 11/08/21 07:45 11/08/21 07:45 Lab Results Blood Type / Crossmatch: No Data to Display Complete Blood Count: No Data to Display Complete Metabolic Panel: No Data to Display Liver Function Panel: No Data to Display Coagulation Panel: No Data to Display Cardiac Panel: No Data to Display Arterial Blood Gas: No Data to Display Venous Blood Gas: No Data to Display Pancreas Panel: No Data to Display Thyroid Panel: No Data to Display Infectious Disease: No Data to Display Blood Cultures: No Data to Display Toxicology Panel: No Data to Display Imaging and Studies Imaging and Studies Study information below may be from another EMR and interpreted by another provider. Please see original notes in EMR for more complete details. EKG Summary: Conclusion Sinus bradycardia...rate< 60 12/13/20 Stress Test Summary: Impressions: - Abnormal study after pharmacologic stress. - Abnormal contraction consistent with cardiomyopathy. - Rec cardiology follow up. Summary: 1. Myocardial perfusion imaging: There is a small - moderate sized, moderately intense, partially reversible defect involving the apical wall(s). This suggests small - moderate ischemia in the distribution of the left anterior descending coronary artery. Overall ischemia: small to moderate. 2. The calculated left ventricular ejection fraction after stress: 43%. Diffuse left ventricular regional motion abnormalities. 11/04/18 Echocardiogram Summary: STUDY CONCLUSIONS* Summary: 1. Left ventricle: The cavity size was normal. Systolic function was normal. The estimated ejection fraction was 60-65%. Diastolic parameters were normal for age. There was no evidence of elevated ventricular filling pressure by Doppler parameters. 2. Aortic valve: There was mild to moderate regurgitation. 3. Mitral valve: There was mild regurgitation. 4. Right ventricle: The cavity size was normal. Wall thickness was normal. Systolic function was normal. 5. Atrial septum: No defect or patent foramen ovale was identified. 6. Pulmonary arteries: Pulmonary systolic pressure was in the range of 20mm Hg to 30mm Hg. 7. Inferior vena cava: The vessel was patent and normal in size. The respirophasic diameter changes were in the normal range (greater than or equal to 50%), consistent with normal central venous pressure. 01/07/19 Anesthesia Assessment and Plan Anesthesia History Personal History: No History of Anesthesia Complications Family History: No Family History of Anesthesia Complications Exercise Tolerance Exercise Tolerance: Metabolic Equivalents>4 Pertinent Negatives Pertinent Negatives: No Major Cardiovascular Symptoms or Complaints and No Major Pulmonary Symptoms or Complaints Cardiac & Pulmonary Exam Cardiac Exam: Normal S1/S2 Heart Sounds Pulmonary Exam: Clear Bilateral Breath Sounds Cardiac and Pulmonary Comment:: CAD, hyperlipidemia, hx remote [place] (2016) and a stent 2019. Had a hx of DM-with exercise he as lost 40 lbs and is no longer DM. Implantable Cardiac Device Does patient have a Pacemaker or an ICD?: No Airway Exam Known Difficult Airway: No Mallampati Class: 1 Mouth Opening: Normal (> 3cm) Thyromental Distance: Greater than 3 cm Neck Range of Motion: Full ROM Neck Circumference: Normal Teeth Condition: Normal Dentition ASA Classification ASA Score: ASA 2 Emergency Case?: No NPO Status NPO Status: NPO Clears >2 hours, Solids >8 hours Anesthesia Plan Resuscitation Status: Full Code Anesthesia Technique: General Anesthesia Airway Planned: Natural Airway Monitors Used: Standard Monitors
[2021-11-08 09:21] VITALS: BMI 26.4
--- NOTE | 2021-11-08 10:07 | BOWEL_PTH ---
PATIENT: Sylvester Joy LOC: [facility] U#:[id number] AGE/SX: 66/M ROOM: RE11/08/[address]: Digna Gonzales MD : [id number] BED: DIS: 11/08/2021 SPEC #: [id number] RECD: 11/08/21 12:58 STATUS: AILEEN REQ #: [id number] REESE: 11/08/21 10:[address]: Digna Gonzales DEPT: Surgical Specimen RECD BY: Zulema Patterson ENTERED: 11/08/21 12:59 SP TYPE: Bowel OTHR DR: Tayo Lopez Tissues: 1 - BIOPSY BOWEL Procedures: GROSS AND MICRO LEVEL 4 Comments: [id number]
[2021-11-08 10:25] VITALS: BP 102/72; PULSE 68; RESP 16; TEMP 36.2; O2SAT 96
--- NOTE | 2021-11-08 10:48 | W.ANESPOSTOP ---
Postoperative Evaluation Date, Time and Location Date Performed: 11/08/21 Time Performed: 10:25 Patient Location: Day Surgery Unit Vital Signs Most Recent Imported Vital Signs: Most Recent Vital Signs Temp Pulse Resp BP Pulse Ox 36.2 C L 68 16 102/72 96 11/08/21 10:25 11/08/21 10:25 11/08/21 10:25 11/08/21 10:11/08/21 10:25 Pain Score Most Recent Pain Score: Most Recent Pain Score Pain Level 0 11/08/21 10:25 Assessment Mental Status: Awake (Alert & Oriented to Patient Baseline) Airway and Respiratory Function: Patent airway with normal (patient baseline) respiratory exam Cardiovascular Function: Hemodynamically Stable Hydration Status: Adequately Hydrated Nausea & Vomiting: No Nausea or Vomiting Pain: Pt. Denies Any Pain Peripheral Nerve Block: Patient did not receive a nerve block
[2021-11-08 10:55] VITALS: BP 136/71; PULSE 66; RESP 18; TEMP 36; O2SAT 98
== END 2021-11-08 11:30 | disposition home or self-care (01) ==
LOC: SUR 07:37
PROVIDERS: PCP Family Medicine; Visit Provider Surgery
PROC: 0DJD8ZZ Inspection of Lower Intestinal Tract, Via Natural or Artificial Opening Endoscopic (ICD-10-PCS; CPT 45378; principal; 2021-11-08 10:00)
DX: Z12.11 Encounter for screening for malignant neoplasm of colon (principal); K63.5 Polyp of colon; K57.30 Diverticulosis of large intestine without perforation or abscess without bleeding; I25.10 Atherosclerotic heart disease of native coronary artery without angina pectoris; Z95.5 Presence of coronary angioplasty implant and graft; I25.2 Old myocardial infarction; K21.9 Gastro-esophageal reflux disease without esophagitis
CPT/HCPCS: 45380; 88305

== ENCOUNTER → 2022-01-19 13:44 | Outpatient (CLI) | payer OTHER, SELFPAY ==
--- NOTE | 2022-01-19 | DI.RAD_ITS ---
Exam(s) XR ANKLE RT COMPLETE EXAM: XR ANKLE RT COMPLETE CLINICAL HISTORY: RT ANKLE JOINT PAIN M25.571. TECHNIQUE: 2D digital imaging was performed. Three views. COMPARISON: No exams were available for comparison FINDINGS: BONES: Plantar calcaneal spur. Mild spurring at the malleoli. Talar dome is intact. No acute fract ure is present. No bony destructive lesion is seen. JOINTS: The ankle mortise is normally aligned. SOFT TISSUE: Swelling in lower leg and around malleoli. Vascular calcifications. IMPRESSION: Mild degenerative changes and heel spur. Soft tissue swelling. DATA REPOSITORY: RADIATION DOSE DELIVERED:
== END ==
PROVIDERS: PCP Family Medicine; Visit Provider Physician Assistant
DX: M19.071 Primary osteoarthritis, right ankle and foot (principal); M77.8 Other enthesopathies, not elsewhere classified; M79.89 Other specified soft tissue disorders
CPT/HCPCS: 73610

== ENCOUNTER 2022-10-20 13:02 | Outpatient (REF) | payer BC, SELFPAY ==
[2022-10-20 15:11] LABS: Abs Immature Grans 0.01 10^3/uL (0.0-0.06); Absolute Basophil Count 0.06 10^3/uL (0.0-0.2); Absolute Eosinophil Count 0.25 10^3/uL (0.0-0.7); Absolute Lymphocyte Count 1.45 10^3/uL (1.2-3.4); Absolute Monocyte Count 0.35 10^3/uL (0.1-0.8); Absolute Neutrophil Count 3.12 10^3/uL (1.2-6.7); Basophils % 1.1; Eosinophils % 4.8; HCT 35.7 % (40.0-50.0); HGB 11.9 g/dL (13.5-17.5); Immature Grans % 0.2; Lymphocytes % 27.7; MCH 27.9 pg (27.0-33.0); MCHC 33.3 % (32.0-36.0); MCV 84 fL (80-95); MPV 9.9 fL (8.0-11.0); Monocytes % 6.7; Neutrophils % 59.5; Platelet Count 147 10^3/uL (130-400); RBC 4.26 10^6/uL (4.36-5.78); RDW 14.2 % (11.8-14.1); RDW-SD 43.3 fL; WBC 5.24 10^3/uL (4.4-10.8)
[2022-10-20 17:12] LABS: ALT 30 U/L (16-63); AST 23 U/L (15-37); Albumin 4.4 g/dL (3.4-5.0); Alkaline Phosphatase 81 U/L (46-116); Anion Gap 9.4 mmol/L (3-11); BUN 20 mg/dL (7-18); Bilirubin, Total 0.4 mg/dL (0.2-1.0); CO2 27.6 mmol/L (21.0-32.0); CREATININE 1.1 mg/dL (0.70-1.30); Calcium 8.8 mg/dL (8.5-10.1); Calculated LDL 66 mg/dL (<100); Chloride 105 mmol/L (98-107); Cholesterol 134 mg/dL (<200); Estimated GFR 74.04 (mL/min/1.73m2); Glucose 109 mg/dL (74-106); HDL Cholesterol 54 mg/dL (40-60); Potassium 4.8 mmol/L (3.5-5.1); Sodium 142 mmol/L (136-145); Total Protein 7.7 g/dL (6.4-8.2); Triglyceride 73 mg/dL (<150); Vitamin B12 286 pg/mL (193-986)
[2022-10-21 09:26] LABS: HIV-1/2 Ag & Ab Screen Negative (Negative)
== END 2022-10-20 13:03 | disposition home or self-care (01) ==
LOC: NCHCN 13:02
PROVIDERS: PCP Family Medicine; Visit Provider Family Medicine
DX: E83.42 Hypomagnesemia (principal); D69.6 Thrombocytopenia, unspecified; Z00.00 Encounter for general adult medical examination without abnormal findings; R10.31 Right lower quadrant pain; I25.10 Atherosclerotic heart disease of native coronary artery without angina pectoris; Z11.4 Encounter for screening for human immunodeficiency virus [HIV]
CPT/HCPCS: 80053; 80061; 87389; 82607; 83735; 85025

== ENCOUNTER 2023-03-28 17:17 | Outpatient (REF) | payer BC, SELFPAY ==
[2023-03-28 17:46] LABS: Abs Immature Grans 0.01 10^3/uL (0.0-0.06); Absolute Basophil Count 0.04 10^3/uL (0.0-0.2); Absolute Eosinophil Count 0.33 10^3/uL (0.0-0.7); Absolute Lymphocyte Count 1.61 10^3/uL (1.2-3.4); Absolute Neutrophil Count 2.57 10^3/uL (1.2-6.7); Basophils % 0.8; Eosinophils % 6.7; HCT 38.1 % (40.0-50.0); HGB 13.1 g/dL (13.5-17.5); Immature Grans % 0.2; Lymphocytes % 32.5; MCH 29.6 pg (27.0-33.0); MCHC 34.4 % (32.0-36.0); MCV 86 fL (80-95); MPV 10.1 fL (8.0-11.0); Monocytes % 8.1; Neutrophils % 51.7; Platelet Count 101 10^3/uL (130-400); RBC 4.43 10^6/uL (4.36-5.78); RDW 15.1 % (11.8-14.1); RDW-SD 47.4 fL; WBC 4.96 10^3/uL (4.4-10.8)
[2023-03-28 17:52] LABS: Iron 80 ug/dL (65-175); Total Iron Binding Capacity 338 ug/dL (250-450); Transferrin Sat 24 % (20-55)
[2023-03-28 17:53] LABS: ALT 22 U/L (16-63); AST 26 U/L (15-37); Albumin 4.1 g/dL (3.4-5.0); Alkaline Phosphatase 77 U/L (46-116); Anion Gap 5.8 mmol/L (3-11); BUN 19 mg/dL (7-18); Bilirubin, Total 0.5 mg/dL (0.2-1.0); CO2 29.2 mmol/L (21.0-32.0); Calcium 9.1 mg/dL (8.5-10.1); Chloride 106 mmol/L (98-107); Estimated GFR 83.01 (mL/min/1.73m2); Glucose 91 mg/dL (74-106); Potassium 4.4 mmol/L (3.5-5.1); Sodium 141 mmol/L (136-145); Total Protein 7.1 g/dL (6.4-8.2)
[2023-03-28 18:13] LABS: Hemoglobin A1C 6.1 % (<5.7)
[2023-04-03 09:14] LABS: Methylmalonic Acid 0.65 nmol/mL (<=0.40)
== END 2023-03-28 17:18 | disposition home or self-care (01) ==
LOC: NCHCN 17:17
PROVIDERS: PCP Family Medicine; Visit Provider Family Medicine
DX: D64.9 Anemia, unspecified (principal); D69.6 Thrombocytopenia, unspecified; R16.1 Splenomegaly, not elsewhere classified; Z51.81 Encounter for therapeutic drug level monitoring; Z79.899 Other long term (current) drug therapy; E11.9 Type 2 diabetes mellitus without complications; I25.10 Atherosclerotic heart disease of native coronary artery without angina pectoris
CPT/HCPCS: 80053; 80186; 83036; 83540; 83550; 85025

== ENCOUNTER 2023-05-05 14:33 | Outpatient (CLI) | payer BC, SELFPAY ==
[2023-05-05 15:13] LABS: Abs Immature Grans 0.02 10^3/uL (0.0-0.06); Absolute Basophil Count 0.03 10^3/uL (0.0-0.2); Absolute Eosinophil Count 0.39 10^3/uL (0.0-0.7); Absolute Lymphocyte Count 1.94 10^3/uL (1.2-3.4); Absolute Monocyte Count 0.32 10^3/uL (0.1-0.8); Absolute Neutrophil Count 2.64 10^3/uL (1.2-6.7); Basophils % 0.6; Eosinophils % 7.3; HCT 37.4 % (40.0-50.0); Immature Grans % 0.4; Lymphocytes % 36.3; MCH 30.1 pg (27.0-33.0); MCHC 34.8 % (32.0-36.0); MCV 87 fL (80-95); Neutrophils % 49.4; Platelet Count 106 10^3/uL (130-400); RBC 4.32 10^6/uL (4.36-5.78); RDW-SD 43.8 fL; WBC 5.34 10^3/uL (4.4-10.8)
[2023-05-05 15:56] LABS: Ferritin 43 ng/mL (26-388)
== END 2023-05-05 14:34 | disposition home or self-care (01) ==
LOC: LBO 14:55
PROVIDERS: PCP Family Medicine; Referring Provider Surgery; Visit Provider Surgery
DX: E11.9 Type 2 diabetes mellitus without complications (principal); K21.9 Gastro-esophageal reflux disease without esophagitis; D12.6 Benign neoplasm of colon, unspecified; I21.9 Acute myocardial infarction, unspecified
CPT/HCPCS: 36415; 82728; 85025

== ENCOUNTER 2023-06-01 14:11 | Outpatient (CLI) | payer BC, SELFPAY ==
[2023-06-01 07:32] LABS: Abs Immature Grans 0.01 10^3/uL (0.0-0.06); Absolute Basophil Count 0.06 10^3/uL (0.0-0.2); Absolute Eosinophil Count 0.47 10^3/uL (0.0-0.7); Absolute Lymphocyte Count 2.26 10^3/uL (1.2-3.4); Absolute Neutrophil Count 2.63 10^3/uL (1.2-6.7); Eosinophils % 8.1; HCT 38.4 % (40.0-50.0); HGB 13.4 g/dL (13.5-17.5); Immature Grans % 0.2; Lymphocytes % 38.8; MCH 30.5 pg (27.0-33.0); MCHC 34.9 % (32.0-36.0); MCV 88 fL (80-95); MPV 9.4 fL (8.0-11.0); Monocytes % 6.9; RBC 4.39 10^6/uL (4.36-5.78); RDW 13.9 % (11.8-14.1); RDW-SD 44.5 fL; WBC 5.83 10^3/uL (4.4-10.8)
[2023-06-01 07:46] LABS: Diff Comment Diff Reviewed; Platelet Count 99 10^3/uL (130-400); RBC Morphology Normal
[2023-06-01 07:59] LABS: Ferritin 36 ng/mL (26-388); Folate 14.6 ng/mL (8.6-20.0)
[2023-06-01 08:05] LABS: GGT 14 U/L (15-85)
== END 2023-06-01 14:12 | disposition home or self-care (01) ==
LOC: LBO 14:12
PROVIDERS: PCP Family Medicine; Visit Provider Surgery
DX: D12.6 Benign neoplasm of colon, unspecified (principal); D50.8 Other iron deficiency anemias; E11.9 Type 2 diabetes mellitus without complications; I25.10 Atherosclerotic heart disease of native coronary artery without angina pectoris; J01.00 Acute maxillary sinusitis, unspecified; K21.9 Gastro-esophageal reflux disease without esophagitis; Z86.39 Personal history of other endocrine, nutritional and metabolic disease
CPT/HCPCS: 36415; 82728; 82746; 82977; 85025

== ENCOUNTER 2023-06-06 15:31 | Outpatient (CLI) | payer BC, SELFPAY ==
[2023-06-06 08:10] LABS: Bilirubin Negative (Negative); Blood Trace-intact (Negative); Clarity Clear (Clear); Glucose Negative (Negative); Ketones Negative (Negative); Leukocyte Esterase Negative (Negative); Nitrite Negative (Negative); Specific Gravity 1.025 (1.005-1.025); Urobilinogen 0.2 mg/dL (Up to 0.2); pH 5.5 (5-8)
[2023-06-06 08:28] LABS: Bacteria Negative HPF (Negative); C & S Indicated? No; Casts Negative LPF (Negative); Crystals Negative HPF (Negative); Epithelial Cells Rare HPF (Negative); Mucus Negative (Negative); RBC 0-2 HPF (0-2); WBC Negative HPF (0-5)
[2023-06-06 12:43] LABS: Platelet Count 107 10^3/uL (130-400); Reticulocyte 1.7 % (0.5-2.4)
[2023-06-06 13:02] LABS: PTT Activated 25.5 sec (23.6-32.8); Prothrombin Time 10.3 sec (9.1-11.1)
[2023-06-06 13:24] LABS: LDH 200 U/L (85-227); TSH (W/Ref FT4) 3.63 uIU/mL (0.36-3.74)
[2023-06-07 10:38] LABS: Hepatitis C Ab w Rflx HCV PCR Negative (Negative)
[2023-06-07 10:54] LABS: HIV-1/2 Ag & Ab Screen Negative (Negative)
[2023-06-07 14:12] LABS: ANA Interpretation Negative (Negative)
== END 2023-06-06 15:32 | disposition home or self-care (01) ==
LOC: LBO 15:33
PROVIDERS: PCP Family Medicine; Visit Provider Surgery
DX: D50.8 Other iron deficiency anemias (principal); I25.10 Atherosclerotic heart disease of native coronary artery without angina pectoris; E11.9 Type 2 diabetes mellitus without complications; K21.9 Gastro-esophageal reflux disease without esophagitis; D12.6 Benign neoplasm of colon, unspecified
CPT/HCPCS: 36415; 86803; 87389; 81003; 81015; 83615; 84443; 85045; 85049; 85576; 85610; 85730; 86038

== ENCOUNTER 2023-06-13 04:11 | Outpatient (CLI) | payer BC, SELFPAY ==
[2023-06-13 16:51] LABS: Platelet Function Analysis 164 secs (94-193)
== END 2023-06-13 04:12 | disposition home or self-care (01) ==
LOC: LBO 04:14
PROVIDERS: PCP Family Medicine; Visit Provider Surgery
DX: D50.8 Other iron deficiency anemias (principal); R16.1 Splenomegaly, not elsewhere classified
CPT/HCPCS: 85576

== ENCOUNTER 2023-06-23 01:38 | Outpatient (RCR) | payer BC, SELFPAY ==
[2023-06-09] MEDS: IRON SUCROSE COMPLEX 200 MG in Normal Saline 100 ML 440 MG IVPB (09:13)
[2023-06-09] MEDS: Normal Saline Flush 10 ML SYR IVP (09:14)
[2023-06-16] MEDS: IRON SUCROSE COMPLEX 200 MG in Normal Saline 100 ML 440 MG IVPB (09:09)
[2023-06-16] MEDS: Normal Saline Flush 10 ML SYR IVP (09:09)
[2023-06-23] MEDS: IRON SUCROSE COMPLEX 200 MG in Normal Saline 100 ML 440 MG IVPB (09:16)
[2023-06-23] MEDS: Normal Saline Flush 10 ML SYR IVP (09:45)
== END 2023-07-02 23:59 | disposition home or self-care (01) ==
LOC: INF 01:38
PROVIDERS: PCP Family Medicine; Visit Provider Surgery
DX: D50.8 Other iron deficiency anemias (principal)
CPT/HCPCS: 96365; J1756

== ENCOUNTER → 2023-07-19 01:41 | Outpatient (CLI) | payer BC, SELFPAY ==
--- NOTE | 2023-07-19 | DI.CT_ITS ---
Exam(s) CT ABDOMEN PELVIS W EXAM: CT ABDOMEN PELVIS W CLINICAL HISTORY: R10.9 Unspecified abdominal pain. TECHNIQUE: Imaging Protocol: Axial computed tomography images with coronal and sagittal reformatted images were created and reviewed CONTRAST MATERIAL: Intravenous: Omnipaque-350 100cc Oral: Yes. Oral contrast was also administered for bowel opacification. COMPARISON: CT CT ABDOMEN PELVIS W from 11/01/2022 FINDINGS: VISUALIZED LUNG BASES: No nodules nor pleural effusions evident. ABDOMEN: There is no ascites. LIVER: There is an unchanged benign tiny 2 millimeter cyst in the superior aspect of the right hepati c lobe. There are no new significant focal liver lesions. No dilated intrahepatic ducts. GALLBLADDER/BILIARY: No obvious gallbladder pathology. CBD is not dilated. PANCREAS: No evidence of pancreatic mass nor dilatation of the pancreatic duct. SPLEEN: There is splenomegaly again noted. The craniocaudal measurement of the spleen is again noted to be 14 cm. The splenic and portal veins are patent. ADRENALS: There are no significant adrenal masses. KIDNEYS:Both kidneys remain unremarkable. No solid renal masses. No calculi nor hydronephrosis.. ABDOMINAL AORTA: Again noted is an infrarenal abdominal aortic aneurysm with maximum diameter again n oted to be just above the aortic bifurcation where it measures 3.2 cm, unchanged. 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 There is no tight stenosis in the vessel at this level nor at its junction with the external iliac artery. LYMPH NODES:There is no retroperitoneal nor paraaortic adenopathy. ABDOMINAL WALL: No evidence of significant anterior abdominal wall hernia. Left inguinal hernia is a gain. The adjacent sigmoid does not extend appreciably into the hernia sac at this level. GI: There is no evidence of bowel obstruction, free air, nor abscess. PELVIS: GI: No evidence of appendicitis.There is abundant fecal material in the colon. There is diverticulos is of the sigmoid but no evidence of acute diverticulitis. LYMPH NODES: No intrapelvic nor inguinal adenopathy evident. REPRODUCTIVE: Prostate mildly enlarged. Seminal vesicles unremarkable. URINARY BLADDER: Urinary bladder wall is uniformly thickened. There is also a small right-sided Hutc h diverticulum again again noted which measures 1.5 by 1.2 cm. It does not contain a calculus nor ma ss. OSSEOUS: No fractures and no significant osseous lesions. IMPRESSION: 1. Compared to the prior CT scan of 11/01/2022 the size of the previously described right common esau c artery aneurysm appears minimally larger with increased amount of mural thrombus on the medial aspe ct of the vessel wall at this level. There is no evidence of high-grade stenosis nor dissection. 2. The appearance of the abdominal aortic aneurysm is similar to previous will with the maximum width of the aorta measuring 3.2 cm at the L4 level. 3. Sigmoid diverticulosis without evidence of acute diverticulitis. 4. Left inguinal hernia which contains fat and no bowel loops. Uniform bladder wall thickening probably related to cystitis and there is a small right-sided Hutch d iverticulum measuring 15 x 12 mm. RADIATION DOSE DELIVERED: Total DLP DATA REPOSITORY: All CT scans at this facility are submitted to the National Radiology Data Registry (NRDR) Dose Index Registry (DIR) with the [employer] (A[employer]). RADIATION OPTIMIZATION: All CT scans at this facility use at least one of these dose optimization te chniques: automated exposure control; mA and/or kV adjustment per patient size (includes targeted exa ms where dose is matched to clinical indication); or iterative reconstruction.
[2023-07-19] MEDS: Barium Sulfate 2% W/V-Creamy Vanilla Smoothie 450 ML BTL PO (09:06)
[2023-07-19 09:33] LABS: CREATININE 1.3 mg/dL (0.70-1.30); Estimated GFR 60.21 (mL/min/1.73m2)
[2023-07-19] MEDS: Omnipaque 350 MG/ML 100 ML BTL IJ (11:35)
== END ==
PROVIDERS: PCP Family Medicine; Visit Provider Family Medicine
DX: R10.9 Unspecified abdominal pain (principal)
CPT/HCPCS: 74177; 82565; J3490

== ENCOUNTER 2024-04-25 14:58 | Outpatient (REF) | payer BC, MEDICARE, SELFPAY ==
[2024-04-25 15:41] LABS: Abs Immature Grans 0.01 10^3/uL (0.0-0.06); Absolute Basophil Count 0.04 10^3/uL (0.0-0.2); Absolute Eosinophil Count 0.35 10^3/uL (0.0-0.7); Absolute Lymphocyte Count 1.86 10^3/uL (1.2-3.4); Absolute Monocyte Count 0.37 10^3/uL (0.1-0.8); Absolute Neutrophil Count 2.62 10^3/uL (1.2-6.7); Basophils % 0.8 %; Eosinophils % 6.7 %; HCT 37.9 % (40.0-50.0); HGB 13.5 g/dL (13.5-17.5); Immature Grans % 0.2 %; Lymphocytes % 35.4 %; MCH 31.7 pg (27.0-33.0); MCHC 35.6 % (32.0-36.0); MCV 89 fL (80-95); MPV 10.1 fL (8.0-11.0); Neutrophils % 49.9 %; Platelet Count 103 10^3/uL (130-400); RBC 4.26 10^6/uL (4.36-5.78); RDW-SD 42.3 fL; WBC 5.25 10^3/uL (4.4-10.8)
[2024-04-25 16:00] LABS: ALT 19 U/L (16-63); AST 24 U/L (15-37); Albumin 3.9 g/dL (3.4-5.0); Alkaline Phosphatase 87 U/L (46-116); Anion Gap 3.8 mmol/L (3-11); BUN 21 mg/dL (7-18); Bilirubin, Total 0.54 mg/dL (0.2-1.0); CO2 31.2 mmol/L (21.0-32.0); CREATININE 1.2 mg/dL (0.70-1.30); Calcium 8.8 mg/dL (8.5-10.1); Chloride 106 mmol/L (98-107); Estimated GFR 66.28 (mL/min/1.73m2); Glucose 103 mg/dL (74-106); Potassium 4.5 mmol/L (3.5-5.1); Sodium 141 mmol/L (136-145); Total Protein 6.8 g/dL (6.4-8.2)
[2024-04-25 17:16] LABS: COMMENT (LAB VIEW ONLY) 62.59 mg/dL; Microalb ug/mg Crea 5.8 ug/mg Cr
== END 2024-04-25 14:59 | disposition home or self-care (01) ==
LOC: NCHCN 14:58
PROVIDERS: PCP Family Medicine; Visit Provider Student in an Organized Health Care Education/Training Program
DX: R73.03 Prediabetes (principal); D69.6 Thrombocytopenia, unspecified; R74.8 Abnormal levels of other serum enzymes
CPT/HCPCS: 80053; 82043; 82570; 85025

== ENCOUNTER 2024-08-18 10:17 | Emergency (ER) | payer MEDICARE, SELFPAY ==
[2024-08-18 10:19] VITALS: BP 164/92; PULSE 106; RESP 14; TEMP 36.4; O2SAT 95
--- NOTE | 2024-08-18 10:30 | DI.RAD_ITS ---
Exam(s) XR WRIST LT COMP NAVICULAR EXAM: XR WRIST LT COMP NAVICULAR CLINICAL HISTORY: foosh, swelling in wrist, ITP hx. TECHNIQUE: 2D digital imaging was performed. COMPARISON: No exams were available for comparison FINDINGS: 3 views There is a fracture at the level the waist of the scaphoid-navicular. There is also an avulsion frac ture off the dorsal aspect of the wrist which is possibly triquetrum. No fracture of the distal radi us and ulna. No significant ulnar variance. No carpal dislocation. IMPRESSION: There is a fracture of the waist of the scaphoid-navicular bone. There is also an avulsion fracture off the dorsal aspect of the carpal row bones, as seen on the lateral view. Recommend follow-up CT s can for added specificity. DATA REPOSITORY: RADIATION DOSE DELIVERED:
[2024-08-18 11:09] LABS: Abs Immature Grans 0.02 10^3/uL (0.0-0.06); Absolute Basophil Count 0.04 10^3/uL (0.0-0.2); Absolute Eosinophil Count 0.35 10^3/uL (0.0-0.7); Absolute Lymphocyte Count 1.34 10^3/uL (1.2-3.4); Absolute Monocyte Count 0.42 10^3/uL (0.1-0.8); Absolute Neutrophil Count 4.14 10^3/uL (1.2-6.7); Basophils % 0.6 %; Eosinophils % 5.5 %; HCT 42.3 % (40.0-50.0); HGB 14.8 g/dL (13.5-17.5); Immature Grans % 0.3 %; Lymphocytes % 21.2 %; MCH 30.6 pg (27.0-33.0); MCV 88 fL (80-95); MPV 9.6 fL (8.0-11.0); Monocytes % 6.7 %; Neutrophils % 65.7 %; Platelet Count 117 10^3/uL (130-400); RBC 4.83 10^6/uL (4.36-5.78); RDW 13.4 % (11.8-14.1); RDW-SD 42.5 fL; WBC 6.31 10^3/uL (4.4-10.8)
[2024-08-18] MEDS: Acetaminophen 500 MG TAB 1000 MG PO (11:11)
[2024-08-18 11:16] LABS: Prothrombin Time 10.1 sec (9.1-11.1)
--- NOTE | 2024-08-18 11:31 | ED.GENADUL_ITS ---
Discharge Plan Disposition Patient Disposition: Home Condition: Good Discharge Details Clinical Impression: Closed fracture of scaphoid of left wrist Primary Care Provider: Praful Thomson ED Provider: Jay Penn Home Meds and New Rx's Prescriptions: No Action metoprolol succinate 50 mg tablet extended release 24 hr 50 mg PO DAILY rosuvastatin 40 mg tablet 40 mg PO DAILY aspirin 81 mg tablet,delayed release (DR/EC) 81 mg PO DAILY sildenafil [Viagra] 100 mg tablet 100 mg PO DAILY PRN ferrous sulfate 15 mg iron (75 mg)/mL drops 1 ml PO BID 30 Days Qty: 60 3RF lisinopril 2.5 mg tablet 5 mg PO DAILY cyanocobalamin (vitamin B-12) 1,000 mcg tablet, sublingual 1,000 mcg sublingual DAILY nitroglycerin 0.4 mg tablet, sublingual 0.4 mg SUBLINGUAL Q5M PRN Discharge Instructions Instructions: Wrist fracture Additional Instructions: At this time your x-ray shows evidence of what appears to be a fracture of your scaphoid bone. Please wear the wrist splint at all times, as the swelling improves you can tighten up the splint to maintain a good secure support system. Please follow-up closely with the bibliographic services specialist. Take Tylenol as needed for pain, apply ice to your wrist frequently to help with the swelling. Orthopedics will contact you for follow-up time. If you notice any worsening of your symptoms, or any new symptoms such as vomiting, diarrhea, fever, chills, shortness of breath, chest pain, numbness, weakness, or fainting , please return immediately to the emergency department for reevaluation. Please follow up with your primary care provider as soon as possible for reassessment and reevaluation. As always, it was a pleasure participating in your medical care today. Referrals: Silvio Pagan MD [ [facility] STAFF PHYSICIAN] - Galina Kowalski MD [ [facility] STAFF PHYSICIAN] - Praful Thomson [Primary Care Provider] - [facility] General Date/Time Provider Initiated Documentation: 08/18/24 10:23 . HPI Narrative: This is a very pleasant 69-year-old male who is right-hand dominant, with a past medical history of ITP, coronary artery disease, who presents today for left wrist pain. Patient states that yesterday he was on a ladder about 3 feet off the ground when he fell and landed on his left wrist in an outstretched fashion. He had immediate pain, but it was mild. He wrapped it with an Dalton wrap, but throughout the night it became notably swollen. He denies numbness or tingling, but does admit to continued pain in the lateral aspect of his wrist proximal to the thumb. He denies any other complaints. He did not hit his head. He denies any significant soreness for his hips knees or chest. No pain in the shoulder. No other complaints at this time. Related Data Home Medications ?Medication ?Instructions ?Recorded ?Confirmed aspirin 81 mg tablet,delayed 81 mg PO DAILY 12/07/18 08/18/24 release metoprolol succinate 50 mg 50 mg PO DAILY 12/07/18 08/18/24 tablet,extended release 24 hr rosuvastatin 40 mg tablet 40 mg PO DAILY 12/07/18 08/18/24 sildenafil 100 mg tablet (Viagra) 100 mg PO DAILY PRN 12/07/18 08/18/24 lisinopril 2.5 mg tablet 5 mg PO DAILY 04/13/21 08/18/24 cyanocobalamin (vitamin B-12) 1,000 mcg sublingual DAILY 04/20/23 08/18/24 1,000 mcg sublingual tablet ferrous sulfate 15 mg iron (75 1 ml PO BID 30 days #60 mL 05/08/23 08/18/24 mg)/mL oral drops nitroglycerin 0.4 mg sublingual 0.4 mg sublingual Q5M PRN 05/10/23 08/18/24 tablet Previous Rx's ?Medication ?Instructions ?Recorded ferrous sulfate 15 mg iron (75 1 ml PO BID 30 days #60 mL 05/08/23 mg)/mL oral drops Allergies Allergy/AdvReac Type Severity Reaction Status Date / Time No Known Allergies Allergy Verified 08/18/24 10:25 General Stated Complaint: Orthopedic MARCELA: 3 Exam Narrative Exam Narrative: 1.Const: Well-nourished, Well-developed, appearing stated age 2.Eyes: PERRL, no conjunctival injection, and symmetrical lids. 3.ENT: Atraumatic external nose and ears. Moist MM. Neck: Symmetric, trachea midline, No thyromegaly. 4.CVS: +S1/S2, Peripheral pulses 2+ and equal in all extremities. Brisk capillary refill in all extremities. 5.RESP: Unlabored respiratory effort. Clear to auscultation bilaterally. No wheezes rales or rhonchi 6.GI: Soft, Nontender/Nondistended, No hepatosplenomegaly. No guarding or rebound. 7.MSK: Left wrist demonstrates notable swelling of the distal forearm and the hand. Distally no tenderness over the metacarpals or phalanges. Mild pain and tenderness over the lateral aspect of the carpals particularly over the navicular bone/scaphoid. No tenderness in the elbow or shoulder. Brisk capillary refill of all fingers. Radial pulse +2. 8.Skin: Warm, Dry. No rashes or lesions. 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 Sensation grossly intact, no focal neurologic deficits. 10.Psych: (AAO) x3. Appropriate mood and affect Course Vital Signs Vital signs: Vital Signs Temperature 36.4 C L 08/18/24 10:19 Pulse 106 H 08/18/24 10:19 Respiratory Rate 14 08/18/24 10:19 Blood Pressure 164/92 H 08/18/24 10:19 Pulse Oximetry 95 08/18/24 10:19 Temperature 36.4 C L 08/18/24 10:19 Temperature Source Oral 08/18/24 10:19 Pulse 106 H 08/18/24 10:19 Respiratory Rate 14 08/18/24 10:19 Blood Pressure 164/92 H 08/18/24 10:19 Blood Pressure Position Supine 08/18/24 10:19 Pulse Oximetry 95 08/18/24 10:19 Oxygen Delivery Method Room Air 08/18/24 10:19 Oxygen Flow Rate 0 08/18/24 10:19 Pain Level 6 08/18/24 11:11 Lab/Test Results Lab/Test Results: Laboratory Tests Range/Units 08/18/24 10:55 WBC (4.4-10.8) 10^3/uL 6.31 RBC (4.36-5.78) 10^6/uL 4.83 Hgb (13.5-17.5) g/dL 14.8 Hct (40.0-50.0) % 42.3 MCV (80-95) fL 88 MCH (27.0-33.0) pg 30.6 MCHC (32.0-36.0) % 35.0 RDW (11.8-14.1) % 13.4 Plt Count (130-400) 10^3/uL 117 L MPV (8.0-11.0) fL 9.6 Immature Gran % % 0.3 Neutrophils % % 65.7 Lymphocytes % % 21.2 Monocytes % % 6.7 Eosinophils % % 5.5 Basophils % % 0.6 Nucleated RBC % (0.0-0.3) % 0.0 Absolute Neutrophils (1.2-6.7) 10^3/uL 4.14 Absolute Lymphocytes (1.2-3.4) 10^3/uL 1.34 Absolute Monocytes (0.1-0.8) 10^3/uL 0.42 Absolute Eosinophils (0.0-0.7) 10^3/uL 0.35 Absolute Basophils (0.0-0.2) 10^3/uL 0.04 PT (9.1-11.1) sec 10.1 INR (0.9-1.1) 1.0 APTT (20.6-30.2) sec 25.0 Medical Decision Making This is a very pleasant 69-year-old male who is right-hand dominant, with a past medical history of ITP, coronary artery disease, who presents today for left wrist pain. Patient states that yesterday he was on a ladder about 3 feet off the ground when he fell and landed on his left wrist in an outstretched fashion. He had immediate pain, but it was mild. He wrapped it with an Dalton wrap, but throughout the night it became notably swollen. He denies numbness or tingling, but does admit to continued pain in the lateral aspect of his wrist proximal to the thumb. He denies any other complaints. He did not hit his head. He denies any significant soreness for his hips knees or chest. No pain in the shoulder. No other complaints at this time. Left wrist demonstrates notable swelling of the distal forearm and the hand. Distally no tenderness over the metacarpals or phalanges. Mild pain and tenderness over the lateral aspect of the carpals particularly over the navicular bone/scaphoid. No tenderness in the elbow or shoulder. Brisk capillary refill of all fingers. Radial pulse +2. Differential is high for scaphoid bone fracture, less likely distal radius fracture. X-ray was ordered and shows evidence of an avulsion fracture from the dorsum of the wrist with a Questionable nondisplaced fracture of the scaphoid. We will place the patient in a thumb spica splint, with orthopedic follow-up secondary to the nature of the fracture. I do not feel that actual cast or Ortho-Glass splint would be advantageous as the swelling is so significant now it will likely diminish in the splint then will become somewhat loose and useless. We will give an adjustable splint for home. Additionally with the patient's history of ITP, we did check blood work, PT, PTT and INR are normal, platelets are 117 which is at his baseline. No evidence of severe hemorrhage risk. Discussed red flags which to return. I have extensively reviewed the treatment plan and discharge instructions with the patient and their family. I have addressed all patient concerns at this time. The patient and family was made aware of what symptoms to monitor for that would warrant a return to the emergency department. Discussed the plan with the patient and family, they demonstrate verbal understanding and agreement with our assessment and plan at this time. The documentation in this chart was dictated using thesixtyone dictation software. Please excuse any dictation errors. FINDINGS: Bones/joints: Lateral view of the wrist shows an avulsion fracture from the dorsum of the proximal row carpal bones. Scaphoid view suggests a possible fracture through the midbody of the scaphoid not confirmed on additional images. The distal radius and ulna are intact. Soft tissues: Normal. No swelling. IMPRESSION: Avulsion fracture from the dorsum of the wrist. Questionable nondisplaced fracture of the scaphoid bone. CT evaluation of the wrist may be helpful. Thank you for allowing us to participate in the care of your patient. Dictated and Authenticated by: Santiago Soto MD 08/18/2024 11:33 AM Eastern Time ([place] & [place]) Quality:SDOH Health Related Social Needs: No Data to Display PFSH All Active Problems (Updated 08/18/24 @ 11:41 by Jay Penn DO) Closed fracture of scaphoid of left wrist (Acute) Hutch diverticulum of urinary bladder (Acute) Left inguinal hernia (Acute) Acquired iron deficiency anemia due to increased iron requirement (Acute) Pain of right inguinal ring (Acute) Anemia (Chronic) Tubular adenoma of colon (Acute) Atherosclerotic cardiovascular disease (Acute) CAD (coronary artery disease) (Chronic) Diabetes (Chronic) Medical History Right ankle pain History of diabetes mellitus Mild acid reflux Thrombocytopenia Hypomagnesemia Iliac artery aneurysm, right Splenomegaly Mild anemia Eczema Erectile dysfunction Acid reflux Screening for colon cancer Acute maxillary sinusitis AMI (acute myocardial infarction) Surgical History H/O vasectomy S/P trigger finger release Thumb History of colonoscopy (~10/2021) H/O hernia repair 1969 s/p right inguinal hernia repair H/O cardiac catheterization H/O heart artery stent Social History (Updated 06/05/23 @ 14:02 by Rosy Courtney DO) Smoking/Tobacco Use Status: Never Smoking risk assessment performed?: Yes Alcohol Intake: current Alcohol Intake frequency: holidays/special occasions only Drug use: Occasionally Substance use type: marijuana Current gender identity: male Do you feel safe at home: Yes Do you feel safe in your relationship?: Yes
--- NOTE | 2024-08-18 11:34 | DI.VRAD_ITS ---
PROCEDURE INFORMATION: Exam: XR Left Wrist Exam date and time: 08/18/2024 11:20 AM Age: 69 years old Clinical indication: Injury or trauma; Fall; Other: Foosh, swelling in wrist, itp HX TECHNIQUE: Imaging protocol: Radiologic exam of the left wrist. Views: 3 or more views. COMPARISON: No relevant prior studies available. FINDINGS: Bones/joints: Lateral view of the wrist shows an avulsion fracture from the dorsum of the proximal row carpal bones. Scaphoid view suggests a possible fracture through the midbody of the scaphoid not confirmed on additional images. The distal radius and ulna are intact. Soft tissues: Normal. No swelling. IMPRESSION: Avulsion fracture from the dorsum of the wrist. Questionable nondisplaced fracture of the scaphoid bone. CT evaluation of the wrist may be helpful. Dictated and Authenticated by: Santiago Soto MD. Orderin Isamar Thompson MD
[2024-08-18 12:06] VITALS: BP 140/74; TEMP 36.9
--- NOTE | 2024-08-18 12:07 | NUR.NOTE ---
Nursing Note: pt splinted by provider, nury Penn MD
== END 2024-08-18 12:12 | disposition home or self-care (01) ==
PROVIDERS: Emergency Provider Student in an Organized Health Care Education/Training Program; PCP Student in an Organized Health Care Education/Training Program
DX: S62.002A Unspecified fracture of navicular [scaphoid] bone of left wrist, initial encounter for closed fracture (principal); W11.XXXA Fall on and from ladder, initial encounter
CPT/HCPCS: 29125; 99283; 73110; 85025; 85610; 85730

== ENCOUNTER 2025-05-02 13:51 | Outpatient (REF) | payer MEDICARE, SELFPAY ==
[2025-05-02 22:56] LABS: Microalb ug/mg Crea 6.2 ug/mg Cr
== END 2025-05-02 13:52 | disposition home or self-care (01) ==
LOC: NCHCN 13:51
PROVIDERS: PCP Student in an Organized Health Care Education/Training Program; Visit Provider Student in an Organized Health Care Education/Training Program
DX: E11.9 Type 2 diabetes mellitus without complications (principal)
CPT/HCPCS: 82043; 82570

== ENCOUNTER 2025-05-19 10:56 | Emergency (ER) | payer MEDICARE, SELFPAY ==
[2025-05-19] VITALS (21 sets, daily range): BP systolic 130–165; BP diastolic 73–90; PULSE 54–71; RESP 11–20; TEMP 36.2–36.6; O2SAT 96–100
--- NOTE | 2025-05-19 10:45 | RT.EKG_ITS ---
APPROVED REPORT Exam: Resting ECG Reason for Exam: chest pain Patient Location: E HR:72 bpm ECG Measurements Heart Rate 72 AXIS NV 131 P 47 QRSd 108 QRS 55 QT 401 T 39 QTc 441 Conclusion Sinus rhythm...normal P axis, V-rate 60- 99 ST elevation, consider inferior injury...ST >0.08mV, II III aVF No Occlusion OK
[2025-05-19] MEDS: Aspirin 81 MG CHEW 324 MG CH (11:21)
--- NOTE | 2025-05-19 11:26 | W.ED.GENAD ---
Discharge Plan Disposition Patient Disposition: Home Condition: Good Discharge Details Clinical Impression: Chest pain, Fatigue Primary Care Provider: Praful Thomson ED Provider: Carin Downey Home Meds and New Rx's Prescriptions: Continued metoprolol succinate 50 mg tablet extended release 24 hr 50 mg PO DAILY rosuvastatin 40 mg tablet 40 mg PO DAILY aspirin 81 mg tablet,delayed release (DR/EC) 81 mg PO DAILY sildenafil [Viagra] 100 mg tablet 100 mg PO DAILY PRN lisinopril 2.5 mg tablet 5 mg PO DAILY cyanocobalamin (vitamin B-12) 1,000 mcg tablet, sublingual 1,000 mcg sublingual DAILY nitroglycerin 0.4 mg tablet, sublingual 0.4 mg SUBLINGUAL Q5M PRN Discharge Instructions Instructions: Chest Pain, Adult ED Additional Instructions: As we discussed, your labs and imaging are reassuring here today. No evidence of elevation in your troponin, no findings to suggest acute strain on your heart. You do not have any evidence to suggest a pulmonary emboli or blood clot in your lung. As we discussed, I do remain concerned for your heart and believe that you do need an outpatient stress test but does not have to be completed emergently. Please encourage hydration and supportive care. If you begin to have recurrent symptoms, please stop what you are doing, rest and use your nitroglycerin as previously prescribed. You do need follow-up with your primary care to discuss outpatient stress test. If your pain is persistent, more severe or change in any way please return to the emergency department once again. Please continue the medication as previously prescribed. Please follow-up with your primary care in 1 week for reevaluation. Stand Alone Forms: Portal Information Referrals: Praful Thomson [Primary Care Provider, Medicine] [facility] Date/Time Provider Initiated Documentation: 05/19/25 11:11. Limitations to Documentation: no limitations. Information obtained by: patient, family () and RN notes reviewed. History of Present Illness 69 year old M presents to the emergency department with the chief complaint of chest pain, described as moderate, Quality is described as aching, Patient reports no radiation. and it has been now resolved. Immobilization improves symptom(s), Movement worsens symptoms (with exertion) . Patient notes chest pain; denies cough, fever/chills, headaches, nausea/vomiting, rash and shortness of breath. Patient did receive the following treatments prior to arrival, none Related Data Home Medications Medication Instructions Recorded Confirmed aspirin 81 mg tablet,delayed 81 mg PO DAILY 12/07/18 05/19/25 release metoprolol succinate 50 mg 50 mg PO DAILY 12/07/18 05/19/25 tablet,extended release 24 hr rosuvastatin 40 mg tablet 40 mg PO DAILY 12/07/18 05/19/25 sildenafil 100 mg tablet (Viagra) 100 mg PO DAILY PRN 12/07/18 05/19/25 lisinopril 2.5 mg tablet 5 mg PO DAILY 04/13/21 05/19/25 cyanocobalamin (vitamin B-12) 1,000 mcg sublingual DAILY 04/20/23 05/19/25 1,000 mcg sublingual tablet nitroglycerin 0.4 mg sublingual 0.4 mg sublingual Q5M PRN 05/10/23 05/19/25 tablet Allergies Allergy/AdvReac Type Severity Reaction Status Date / Time No Known Allergies Allergy Verified 05/19/25 11:03 General Stated Complaint: Chest Pain MARCELA: 3 Review of Systems Constitutional Constitutional: Reports as per HPI, Denies chills, Denies fever(s), Denies headache(s), Denies lethargy and Denies poor appetite Eyes Eyes: Denies change in vision ENT Ears, Nose, Mouth, and Throat: Denies dizziness and Denies headache(s) Cardiovascular Cardiovascular: Reports as per HPI and Denies dyspnea Respiratory Respiratory: Reports as per HPI, Denies chest congestion, Denies cough, Denies pain on inspiration, Denies pain with cough and Denies dyspnea Gastrointestinal Gastrointestinal: Reports as per HPI, Denies abdominal pain, Denies diarrhea, Denies nausea and Denies vomiting Genitourinary Genitourinary: Denies system reviewed and no additional complaints, except as documented (denies change in urinary habits) Musculoskeletal Musculoskeletal: Reports as per HPI and Denies back pain Integumentary/Breasts Skin/Breast: Reports as per HPI and Denies rash Neurologic Neurologic: Reports as per HPI, Denies dizziness and Denies headache(s) Exam Const General: cooperative, healthy appearing, comfortable, no acute distress and well developed Nutritional Appearance: average body habitus and well nourished Orientation: alert, awake and oriented x3 HENMT Head: normal to inspection Ears: hearing grossly normal bilaterally Mouth: moist mucous membranes Chest Chest: normal inspection of the chest, normal palpation of entire chest wall and no crepitus Resp Effort & Inspection: normal respiratory effort, able to speak in complete sentences and no respiratory distress Auscultation: clear to auscultation bilaterally, no rales, no rhonchi and no wheezes Cardio Rate: regular rate Rhythm: regular rhythm GI Inspection: normal to inspection, no edema and non-distended Palpation: soft, no guarding and nontender Skin General skin exam: no rashes or lesions noted Trauma: no lacerations or abrasions Neuro General: patient alert, patient awake and patient oriented x3 Cognition: normal cognition Speech: speech normal Gait: normal gait Extrem General: normal to inspection, capillary refill normal, no pedal edema, no calf tenderness and normal gait Course Vital Signs Vital signs: Vital Signs Temperature 36.2 C L 05/19/25 10:58 Pulse 71 05/19/25 10:58 Respiratory Rate 18 05/19/25 10:58 Blood Pressure 159/90 H 05/19/25 10:58 Pulse Oximetry 96 05/19/25 10:58 Temperature 36.2 C L 05/19/25 10:58 Pulse 71 05/19/25 10:58 Respiratory Rate 15 05/19/25 11:12 Respiratory Effort Normal 05/19/25 11:12 Respiratory Depth Normal 05/19/25 11:12 Respiratory Pattern Normal 05/19/25 11:12 Blood Pressure 159/90 H 05/19/25 10:58 Pulse Oximetry 96 05/19/25 10:58 Pain Level 3 05/19/25 10:58 Medical Decision Making Patient is a pleasant 61-year-old gentleman, accompanied by his , with past medical history significant for type 2 diabetes, actinic keratosis, overweight, systolic murmur, aneurysm of the iliac artery, splenomegaly, GERD, immune thrombocytopenia, CAD, hypertension, marijuana use, former smoker, NSTEMI, presenting today for evaluation of chest pain. He reports that he had pain 2 days ago when exerting himself working around the house. States the pain lasted about 30 minutes and subsided with rest. Patient is prescribed nitroglycerin but states he did not take this as he forgot to use it. He does keep it handy and in a necklace that he wears routinely. States he has not had any other symptoms like this. His does note however that he has been having increased fatigue over the past month that seems to be progressively worsening. States that he is potentially becoming short of breath but that he does not have the stamina that he had previously. He also describes having had some discomfort along his clavicles previously, estimated be about the past month. He states that this seems to be more muscular in nature and he attributes to a long car drive he took to [place] about a month ago. Symptoms have been since that time although the chest pain only occurred once. He does have a history of NSTEMI and states that the pain at that time was much different than pain that he is experience now. He has not had any other exertional episodes. No lightheadedness. No shortness of breath, pain rating into the back, nausea or vomiting. On exam, patient appears nontoxic. Resting comfortably no acute distress. Patient is hemodynamically stable. Patient does have a systolic murmur, best heard at the apex. Patient reports that this was noted recently by his primary care provider. His lungs are clear, normal abdominal exam, no pain with palpation of the chest wall or with movement of his arms, no lower extremity edema or calf pain. Patient has 2+ distal pulses in all extremities. Patient is currently asymptomatic but his pain coming on during exertion, particularly with his history of NSTEMI and stent placement, has been concerned for ACS. ECG was obtained, no evidence to suggest STEMI. Also considered alternative such as PE given the fact that patient has had increased fatigue and symptoms since his long car ride about a month ago. He has never had a history of a DVT. Does have a history of thrombocytopenia. He is on antiplatelet. However, with the prolonged time being sedentary did consider that this could be diagnosis. He has not noted any changes with appetite, unlikely to be associated with GERD. He has no pain rating into the back, persistent pain or hemodynamic instability to suggest a dissection or aneurysm. Labs reviewed. No leukocytosis. Platelet count is 116 which is normal for this patient. His D-dimer is elevated at 1335 so we will move forward with a CTA. Discussed this with the patient who is in agreement. CMP without significant abnormality aside from high glucose which patient was aware of. Troponin is negative x 2 without any significant change in reading. Chest x-ray reviewed by radiologist with no acute abnormality noted. CTA was obtained and reviewed by radiologist with no evidence of pulmonary emboli or other acute abnormality noted. Discussed with the patient. No evidence of NSTEMI or STEMI at this time. Seems like it was a isolated event so may have been associated with muscular discomfort which was patient's initial thought on this. However, given his history I do believe that he needs an outpatient stress test. Patient reports has been over this year since his most recent. He will follow-up with his primary care to set up a time for this. We also discussed his marijuana use. He and his smoke marijuana daily and while typically they smoke marijuana they have grown, occasionally they get this from a dispensary as well. I did discuss that there is a correlation with marijuana use and increased risk for ACS. I did discuss that he try to evaluate this further for safety and help prevent any further events. He will follow-up closely with his primary care in the next 1 to 2 weeks. Strict return precautions were discussed. All his questions and concerns were addressed and patient screened this plan. I did remind him that he does have the nitroglycerin available that he should use this as previously recommended. Dictation completed using [employer] dictation software. Please excuse any errors or clerk manager anomalies that may remain. PFSH All Active Problems (Updated 05/19/25 @ 14:02 by DORIS Harris) Fatigue (Acute) Chest pain (Acute) Hutch diverticulum of urinary bladder (Acute) Left inguinal hernia (Acute) Acquired iron deficiency anemia due to increased iron requirement (Acute) Pain of right inguinal ring (Acute) Anemia (Chronic) Tubular adenoma of colon (Acute) Atherosclerotic cardiovascular disease (Acute) CAD (coronary artery disease) (Chronic) Diabetes (Chronic) Medical History Right ankle pain History of diabetes mellitus Mild acid reflux Thrombocytopenia Hypomagnesemia Iliac artery aneurysm, right Splenomegaly Mild anemia Eczema Erectile dysfunction Acid reflux Screening for colon cancer Acute maxillary sinusitis AMI (acute myocardial infarction) Surgical History H/O vasectomy S/P trigger finger release Thumb History of colonoscopy (~10/2021) H/O hernia repair 1969 s/p right inguinal hernia repair H/O cardiac catheterization H/O heart artery stent Social History (Updated 06/05/23 @ 14:02 by Rosy M Stoiber, DO) Smoking/Tobacco Use Status: Never Smoking risk assessment performed?: Yes Alcohol Intake: current Alcohol Intake frequency: holidays/special occasions only Drug use: Occasionally Substance use type: marijuana Current gender identity: male Do you feel safe at home: Yes Do you feel safe in your relationship?: Yes
[2025-05-19 11:58] LABS: Magnesium 1.9 mg/dL (1.6-2.6); Troponin I 14 ng/L (<54)
[2025-05-19 12:00] LABS: ALT 19 U/L (10-49); AST 29 U/L (<34); Albumin 4.8 g/dL (3.4-5.0); Alkaline Phosphatase 112 U/L (46-116); Anion Gap 6.9 mmol/L (3-11); BUN 20 mg/dL (9-23); Bilirubin, Total 0.60 mg/dL (0.2-1.2); CO2 30.1 mmol/L (20.0-31.0); Calcium 9.3 mg/dL (8.3-10.6); Chloride 104 mmol/L (98-107); Glucose 154 mg/dL (74-106); Potassium 4.6 mmol/L (3.5-5.1); Sodium 141 mmol/L (136-145); Total Protein 7.7 g/dL (5.7-8.2)
[2025-05-19 12:02] LABS: Abs Immature Grans 0.02 10^3/uL (0.0-0.06); HCT 36.5 % (40.0-50.0); HGB 13.0 g/dL (13.5-17.5); Immature Grans % 0.4 %; MCH 30.4 pg (27.0-33.0); MCHC 35.6 % (32.0-36.0); MCV 86 fL (80-95); MPV 9.6 fL (8.0-11.0); Platelet Count 116 10^3/uL (130-400); RBC 4.27 10^6/uL (4.36-5.78); RDW 13.0 % (11.8-14.1); RDW-SD 39.8 fL; WBC 5.31 10^3/uL (4.4-10.8)
--- NOTE | 2025-05-19 12:09 | DI.RAD_ITS ---
Exam(s) XR CHEST 2V PA LATERAL EXAM: XR CHEST 2V PA LATERAL CLINICAL HISTORY: Chest pain TECHNIQUE: 2D digital imaging was performed. Two views. COMPARISON: CT CT CHEST PE CTA from 12/13/2020 FINDINGS: HEART: Normal size. Aorta: Not dilated. PULMONARY VASCULATURE: Normal. MEDIASTINUM: Unremarkable. LUNGS: Clear. PLEURAL SPACE: No pleural effusion or pneumothorax. BONE:Unremarkable for age. SOFT TISSUES: Unremarkable. IMPRESSION: No acute abnormality. DATA REPOSITORY: RADIATION DOSE DELIVERED:
[2025-05-19 12:23] LABS: D-Dimer 1335 ng/mlFEU (<500)
[2025-05-19 12:56] LABS: Troponin I 15 ng/L (<54)
[2025-05-19] MEDS: Normal Saline Flush 10 ML SYR IVP (13:18)
[2025-05-19] MEDS: Omnipaque 350 MG/ML 100 ML BTL IJ (13:18)
[2025-05-19] MEDS: Normal Saline - Diluent 50 ML VIAL IJ (13:18)
--- NOTE | 2025-05-19 13:25 | DI.CT_ITS ---
Exam(s) CT CHEST PE CTA EXAM: CT CHEST PE CTA CLINICAL HISTORY: CP, fatigue. TECHNIQUE: Imaging Protocol: Axial CT angiography was performed with multi- slice acquisition and multi-planar reconstructions as well as axial, coronal and sagittal MIP reconstructions. Computer aided detection (CAD) was utilized. CONTRAST MATERIAL: Intravenous: Omnipaque 350 Contrast volume:75 ml COMPARISON: CT CT CHEST PE CTA from 12/13/2020 CR XR CHEST 2V PA LATERAL from 05/19/2025 FINDINGS: Pulmonary Arteries: No evidence of filling defect to suggest pulmonary emboli. Mediastinum and Brooke: No dominant adenopathy or fluid collection. Small hiatal hernia. Pulmonary parenchyma: No consolidation or dominant measurable mass. Pleura: No effusion or pneumothorax. Heart: The heart is not dilated. Moderate coronary artery calcifications are seen. Aorta: Thoracic aorta non-dilated. No dissection. Upper abdomen: No acute findings. Bones: Unremarkable for age. Tubes, Catheters, and Lines: None Soft tissues: Unremarkable. IMPRESSION: No evidence of pulmonary embolism or other acute abnormality in the chest. RADIATION DOSE DELIVERED: 88.68mGy.cm Total DLP DATA REPOSITORY: All CT scans at this facility are submitted to the National Radiology Data Registry (NRDR) Dose Index Registry (DIR) with the [employer] ([employer]). RADIATION OPTIMIZATION: All CT scans at this facility use at least one of these dose optimization techniques: automated exposure control; mA and/or kV adjustment per patient size (includes targeted exams where dose is matched to clinical indication); or iterative reconstruction.
[2025-05-19] MEDS: Lactated Ringers 500 ML IV (13:38)
== END 2025-05-19 14:16 | disposition home or self-care (01) ==
PROVIDERS: Emergency Provider Physician Assistant; PCP Student in an Organized Health Care Education/Training Program
DX: R07.9 Chest pain, unspecified (principal); R53.83 Other fatigue; F12.90 Cannabis use, unspecified, uncomplicated
CPT/HCPCS: 99284; 99285; 36415; 71275; 80053; 93005; 71046; 83735; 84484; 85025; 85379; 93010; J3490

== ENCOUNTER 2025-05-28 10:25 | Outpatient (REF) | payer MEDICARE, SELFPAY ==
[2025-05-28 18:17] LABS: Abs Immature Grans 0.02 10^3/uL (0.0-0.06); HCT 38.1 % (40.0-50.0); HGB 13.1 g/dL (13.5-17.5); Immature Grans % 0.4 %; MCH 30.3 pg (27.0-33.0); MCHC 34.4 % (32.0-36.0); MCV 88 fL (80-95); MPV 10.6 fL (8.0-11.0); Platelet Count 113 10^3/uL (130-400); RBC 4.33 10^6/uL (4.36-5.78); RDW 13.0 % (11.8-14.1); RDW-SD 41.9 fL; WBC 5.01 10^3/uL (4.4-10.8)
[2025-05-28 22:06] LABS: Fibrinogen 385 mg/dL (171-384)
== END 2025-05-28 10:26 | disposition home or self-care (01) ==
LOC: NCHCN 10:25
PROVIDERS: PCP Student in an Organized Health Care Education/Training Program; Visit Provider Student in an Organized Health Care Education/Training Program
DX: R79.89 Other specified abnormal findings of blood chemistry (principal)
CPT/HCPCS: 85384; 85025

== ENCOUNTER → 2025-06-23 00:10 | Outpatient (CLI) | payer MEDICARE, SELFPAY ==
--- NOTE | 2025-06-23 | ETT_ITS ---
APPROVED REPORT Exam: Exercise Treadmill Patient Location: Out-Patient Room/Bed: Stress Nurse: Miriam Tong RN Ordering Provider:BENI SNYDER, Contact Number: [phone] BMI: 25.84 Baseline Rhythm: Sinus Rhythm Indications: chest pain Medical History Medical History: DM2, heart murmur, iliac artery aneurysm, splenomegaly, GERD, immune thrombocytopenia, CAD, HTN, marijuana [place], NSTEMI, anemia Cardiac Medications: aspirin, nitroglycerin, metoprolol succinate, rosuvastatin, sildenafil, lisinopril Allergies: NKA Cardiac Risk Factors: family hx, diabetes, HTN, HLD, CVD, former smoker Previous Cardiac Procedures: stent 2018, NSTEMI 2015 Pretest Chest Pain Characteristics: n/a Exercise History: Physically active Physical Disabilities: n/a Lung Sounds: Clear to auscultation Heart Sounds: Regular Stress Test Details Test: Exercise stress testing was performed using a Xavi protocol. Rest Stress HR Resting HR Supine: 66 bpm Max Heart Rate (APMHR): 152 bpm Resting HR Standin bpm Target HR (85% APMHR): 129 bpm Max HR Achieved: 135 bpm % of APMHR: 89 Recovery HR: 74 bpm HR response to stress: Normal HR response to stress BP Resting BP Supine: 140/80 mmHg Resting BP Standin/80 mmHg Max BP: 170/80 mmHg Recovery BP: 130/70 mmHg BP response to stress: Normal blood pressure response to stress. ECG Resting ECG: Sinus Rhythm, nonspecific ST-T abnormalities Ectopy: rare PVCs Stress ECG: Sinus Rhythm, nonspecific ST-T abnormalities ST Change: No significant ST segment changes noted Arrhythmia: rare PVCs, rare PACs Recovery ECG: Sinus Rhythm, nonspecific ST-T abnormalities Recovery ST Change: No significant ST segment changes noted Recovery Arrhythmia: rare PVCs Clinical Reason for Termination: Target HR Achieved, Fatigue Stress Symptoms: Dyspnea, General Fatigue Exercise duration: 07 min00 sec Highest Stage Reached: Stage 2: 2.5 mph at 12% grade. Exercise capacity: 8.62 METs Angina Score: None Eng Treadmill Score: 6.4 Rate Pressure Product: [id number] Stress ECG Conclusion 1. Resting EKG showed minor nondiagnostic ST abnormalities 2. Patient exercised on the Xavi protocol completed workload of 8 METS 3. Normal heart rate and blood pressure response to exercise. The patient achieved 89% of maximal predicted heart rate for age 4. There was no electrocardiographic evidence of myocardial ischemia 5. There were no significant dysrhythmias Eng Treadmill Score is 6.4 which is Low risk. Stress Test Summary STAGE Time (mins) Speed (mph) Grade (%) HR BP SpO2 SYMPTOMS METS Supine 66 140/80 99 Standing 78 170/80 1 3 1.7 10 111 170/70 mild SOB 4.5 2 6 2.5 12 135 170/80 moderate SOB 7 1 min recovery 110 160/60 96 3 min recovery 71 130/68 97 6 min recovery 74 130/[address]-T abnormalities seen on EKG, consistent with previous EKG. Pt c/o mild-mod SOB during exercise. All symptoms resolved by end of test. Pt left ambulatory in no acute distress.
== END ==
LOC: DI 00:10
PROVIDERS: PCP Student in an Organized Health Care Education/Training Program; Visit Provider Student in an Organized Health Care Education/Training Program
DX: R07.9 Chest pain, unspecified (principal)
CPT/HCPCS: 93016; 93018; 93017

== ENCOUNTER → 2025-06-24 00:44 | Outpatient (CLI) | payer MEDICARE, SELFPAY ==
--- NOTE | 2025-06-24 | DI.US_ITS ---
Exam(s) US LOWER EXTREMITY VENOUS RT EXAM: US LOWER EXTREMITY VENOUS RT CLINICAL HISTORY: UNILATERAL EDEMA LOWER EXT, R60.0 LOCALIZED EDEMA, HX PRIOR DVT TECHNIQUE: Grayscale, color, and doppler imaging of the deep venous system of the right lower extremity was performed. COMPARISON: US US RENAL from 06/24/2025 FINDINGS: There is no evidence of intraluminal thrombus and there is normal compression and augmentation demonstrated within the common femoral vein, femoral vein, and popliteal vein. In the ipsilateral calf the interrogated veins also exhibit normal compression/ augmentation properties. The ipsilateral saphenofemoral junction is patent. IMPRESSION: 1. No evidence of DVT in the right lower extremity. DATA REPOSITORY:
--- NOTE | 2025-06-24 | DI.US_ITS ---
Exam(s) US RENAL EXAM: US RENAL CLINICAL HISTORY: R10.30 Lower abd pain, HX smoking,continued sporadic bladder pain,had an TECHNIQUE: Ultrasound of both kidneys performed using standard protocol. COMPARISON: US Cardiac from 01/07/2019 FINDINGS: RIGHT KIDNEY: Measures 9.3 cm in length. No cysts evident. Normal cortical thickness and corticomedullary differentiation .No solid masses No intrarenal calculi nor hydronephrosis. LEFT KIDNEY: Measures 10.2 cm in length. No cysts evident. Normal cortical thickness and corticomedullary differentiaion. No solids masses. No intrarenal calculi nor hydonephrosis. URINARY BLADDER: Prevoid volume is 157 cc Postvoid volume is 42 cc No evidence of obvious bladder mass. 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 Prostate gland measures 4.5 cm wide by 3 cm x 3 cm, giving a prostate volume of 21 cc. Ureterovesical jets: Both identified and appear symmetrical IMPRESSION: 1. No significant focal ultrasound findings in the kidneys. No hydronephrosis. 2. 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 DATA REPOSITORY:
== END ==
LOC: DI 00:44
PROVIDERS: PCP Student in an Organized Health Care Education/Training Program; Visit Provider Student in an Organized Health Care Education/Training Program
DX: R10.30 Lower abdominal pain, unspecified (principal)
CPT/HCPCS: 76770; 93971